=== PATIENT | male | born 1960 | race Caucasian/White ===

== ENCOUNTER 2020-01-14 14:14 | Outpatient (REF) | payer OTHER, SELFPAY | END 2020-01-14 14:15 | disposition home or self-care (01) | LOC: HO.BBR 14:14 | PROVIDERS: Visit Provider Internal Medicine Gastroenterology | DX: E83.110 Hereditary hemochromatosis (principal) | CPT/HCPCS: 99195 ==

== ENCOUNTER 2020-03-10 14:13 | Outpatient (REF) | payer OTHER, SELFPAY ==
[2020-03-10 16:06] LABS: Iron 74 mcg/dL (45-160); Percent Iron Saturation 24 % (15-50); Total Iron Binding Capacity 308 mcg/dL (228-428); Unsaturated Iron Binding 234 ug/dL
[2020-03-10 16:20] LABS: Ferritin 9 ng/mL (20-250)
== END 2020-03-10 14:14 | disposition home or self-care (01) ==
LOC: HO.BBR 14:13
PROVIDERS: Visit Provider Internal Medicine Gastroenterology
DX: E83.110 Hereditary hemochromatosis (principal)
CPT/HCPCS: 36415; 82728; 83540

== ENCOUNTER 2020-03-10 14:45 | Outpatient (REF) | payer SELFPAY ==
[2020-03-10 19:22] LABS: Cholesterol 197 mg/dL
[2020-03-10 19:46] LABS: SARS COV2 IgG Negative (Negative)
== END 2020-03-10 14:46 | disposition home or self-care (01) ==
LOC: HO.LNC 14:45
PROVIDERS: Visit Provider Pathology Anatomic Pathology & Clinical Pathology
DX: Z20.828 Contact with and (suspected) exposure to other viral communicable diseases (principal)
CPT/HCPCS: 82465; 86769

== ENCOUNTER 2020-03-10 15:03 | Outpatient (REF) | payer SELFPAY | END 2020-03-10 15:04 | disposition home or self-care (01) | LOC: HO.LNC 15:03 | PROVIDERS: Visit Provider Pathology Anatomic Pathology & Clinical Pathology | DX: Z13.89 Encounter for screening for other disorder (principal) ==

== ENCOUNTER 2020-06-09 13:58 | Outpatient (REF) | payer OTHER, SELFPAY ==
[2020-06-09 14:22] LABS: Hematocrit 42.5 % (42-52); Hemoglobin 14.7 g/dl (14.0-18.0)
[2020-06-09 14:48] LABS: Iron 117 mcg/dL (45-160); Percent Iron Saturation 39 % (15-50); Total Iron Binding Capacity 300 mcg/dL (228-428); Unsaturated Iron Binding 183 ug/dL
[2020-06-09 15:09] LABS: Ferritin 15 ng/mL (20-250)
== END 2020-06-09 13:59 | disposition home or self-care (01) ==
LOC: HO.BBR 13:58
PROVIDERS: Visit Provider Internal Medicine Gastroenterology
DX: E83.110 Hereditary hemochromatosis (principal)
CPT/HCPCS: 36415; 82728; 83540; 85014; 85018

== ENCOUNTER 2020-09-15 14:11 | Outpatient (REF) | payer OTHER, SELFPAY ==
[2020-09-15 14:33] LABS: Hematocrit 40.8 % (42-52); Hemoglobin 14.3 g/dl (14.0-18.0)
[2020-09-15 14:57] LABS: Iron 142 mcg/dL (45-160); Percent Iron Saturation 51 % (15-50); Total Iron Binding Capacity 280 mcg/dL (228-428); Unsaturated Iron Binding 138 ug/dL
[2020-09-15 15:18] LABS: Ferritin 10 ng/mL (20-250)
== END 2020-09-15 14:12 | disposition home or self-care (01) ==
LOC: HO.BBR 14:11
PROVIDERS: Visit Provider Internal Medicine Gastroenterology
DX: E83.110 Hereditary hemochromatosis (principal)
CPT/HCPCS: 36415; 82728; 83540; 85014; 85018

== ENCOUNTER 2021-03-09 13:59 | Outpatient (REF) | payer OTHER, SELFPAY ==
[2021-03-09 14:19] LABS: Hematocrit 43.6 % (42.0-52.0); Hemoglobin 15.9 g/dl (14.0-18.0)
[2021-03-09 14:36] LABS: Iron 246 mcg/dL (45-160); Unsaturated Iron Binding < 17 ug/dL
[2021-03-09 14:59] LABS: Ferritin 38 ng/mL (20-250)
== END 2021-03-09 14:00 | disposition home or self-care (01) ==
LOC: HO.BBR 13:59
PROVIDERS: Visit Provider Internal Medicine Gastroenterology
DX: E83.110 Hereditary hemochromatosis (principal)
CPT/HCPCS: 36415; 82728; 83540; 85014; 85018

== ENCOUNTER 2021-06-15 14:12 | Outpatient (REF) | payer OTHER, SELFPAY | END 2021-06-15 14:13 | disposition home or self-care (01) | LOC: HO.BBR 14:12 | PROVIDERS: Visit Provider Internal Medicine Gastroenterology | DX: Z13.89 Encounter for screening for other disorder (principal) ==

== ENCOUNTER 2021-09-28 14:08 | Outpatient (REF) | payer OTHER, SELFPAY ==
[2021-09-28 14:27] LABS: Hematocrit 43.2 % (42.0-52.0); Hemoglobin 15.8 g/dl (14.0-18.0)
[2021-09-28 14:48] LABS: Iron 239 mcg/dL (45-160); Total Iron Binding Capacity < 256 mcg/dL (228-428); Unsaturated Iron Binding < 17 ug/dL
[2021-09-28 15:08] LABS: Ferritin 55 ng/mL (20-250)
== END 2021-09-28 14:09 | disposition home or self-care (01) ==
LOC: HO.BBR 14:08
PROVIDERS: Visit Provider Internal Medicine Gastroenterology
DX: E83.110 Hereditary hemochromatosis (principal)
CPT/HCPCS: 36415; 82728; 83540; 85014; 85018

== ENCOUNTER 2022-01-01 14:08 | Outpatient (REF) | payer OTHER, SELFPAY | END 2022-01-01 14:09 | disposition home or self-care (01) | LOC: HO.BBR 14:08 | PROVIDERS: Visit Provider Internal Medicine Gastroenterology | DX: Z13.89 Encounter for screening for other disorder (principal) ==

== ENCOUNTER 2022-04-03 14:06 | Outpatient (REF) | payer OTHER, SELFPAY ==
[2022-04-03 14:30] LABS: Hematocrit 46.6 % (42.0-52.0); Hemoglobin 16.7 g/dl (14.0-18.0)
[2022-04-04 03:41] LABS: Ferritin 71 ng/mL (20-250)
[2022-04-04 03:45] LABS: Iron 272 mcg/dL (45-160); Percent Iron Saturation 92 % (15-50); Total Iron Binding Capacity 297 mcg/dL (228-428); Unsaturated Iron Binding < 25 ug/dL
== END 2022-04-03 14:07 | disposition home or self-care (01) ==
LOC: HO.BBR 14:06
PROVIDERS: PCP Family Medicine; Visit Provider Internal Medicine Gastroenterology
DX: E83.110 Hereditary hemochromatosis (principal)
CPT/HCPCS: 36415; 82728; 83540; 85014; 85018

== ENCOUNTER 2022-08-22 14:08 | Outpatient (REF) | payer OTHER, SELFPAY | END 2022-08-22 14:09 | disposition home or self-care (01) | LOC: HO.BBR 14:08 | PROVIDERS: Visit Provider Internal Medicine Gastroenterology | DX: Z13.89 Encounter for screening for other disorder (principal) ==

== ENCOUNTER 2022-10-17 14:06 | Outpatient (REF) | payer OTHER, SELFPAY | END 2022-10-17 14:07 | disposition home or self-care (01) | LOC: HO.BBR 14:06 | PROVIDERS: PCP Family Medicine; Visit Provider Internal Medicine Gastroenterology | DX: Z13.89 Encounter for screening for other disorder (principal) ==

== ENCOUNTER 2022-12-12 14:12 | Outpatient (REF) | payer OTHER, SELFPAY | END 2022-12-12 14:13 | disposition home or self-care (01) | LOC: HO.BBR 14:12 | PROVIDERS: PCP Family Medicine; Visit Provider Internal Medicine Gastroenterology | DX: Z13.89 Encounter for screening for other disorder (principal) ==

== ENCOUNTER 2023-02-04 14:04 | Outpatient (REF) | payer OTHER, SELFPAY ==
[2023-02-04 15:26] LABS: Ferritin 36 ng/mL (20-250)
== END 2023-02-04 14:05 | disposition home or self-care (01) ==
LOC: HO.BBR 14:04
PROVIDERS: PCP Family Medicine; Visit Provider Internal Medicine Gastroenterology
DX: E83.110 Hereditary hemochromatosis (principal)
CPT/HCPCS: 36415; 82728

== ENCOUNTER 2023-06-04 13:48 | Outpatient (REF) | payer OTHER, SELFPAY | END 2023-06-04 13:49 | disposition home or self-care (01) | LOC: HO.BBR 13:48 | PROVIDERS: PCP Family Medicine; Visit Provider Internal Medicine Gastroenterology | DX: Z13.89 Encounter for screening for other disorder (principal) ==

== ENCOUNTER 2023-09-11 14:08 | Outpatient (REF) | payer OTHER, SELFPAY | END 2023-09-11 14:09 | disposition home or self-care (01) | LOC: HO.BBR 14:08 | PROVIDERS: PCP Family Medicine; Visit Provider Internal Medicine Gastroenterology | DX: Z13.89 Encounter for screening for other disorder (principal) ==

== ENCOUNTER 2023-12-12 14:11 | Outpatient (REF) | payer OTHER, SELFPAY | END 2023-12-12 14:12 | disposition home or self-care (01) | LOC: HO.BBR 14:11 | PROVIDERS: PCP Family Medicine; Visit Provider Internal Medicine Gastroenterology | DX: Z13.89 Encounter for screening for other disorder (principal) ==

== ENCOUNTER 2024-06-24 14:17 | Outpatient (REF) | payer MEDICARE, SELFPAY | END 2024-06-24 14:18 | disposition home or self-care (01) | LOC: HO.BBR 14:17 | PROVIDERS: Visit Provider Internal Medicine Gastroenterology | DX: Z13.89 Encounter for screening for other disorder (principal) ==

== ENCOUNTER 2024-09-23 14:09 | Outpatient (REF) | payer MEDICARE, SELFPAY ==
--- OUTSIDE RECORDS SUMMARY | 2024-09-23 17:09 | XMS_ITS | Data Portability ---
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 12 point review of systems is notable for: 1) rosacea-he sees Dr. Tanisha Sparrow to help with his rosacea which is flared up slightly. Follow-up per dermatology. 2) adenomatous colon polyp-on a routine colonoscopy last year he was found to abdomen and no medicine polyp. He will go for colonoscopy every 5 years. 3) elevated calcium artery score-reviewed his cardiology workup. He had an excellent capacity and a stress test. He continues to exercise regularly. Lipid panel from last year reviewed which was quite favorable. Assessment-clini amber normal. Follow-up in a year. 4) health maintenance-revi ewed all quality measures. Regular exercise discussed. Immunizations are up-to-date. Yearly physical encouraged. Stress management is good. Reviewed his normal PHQ. He is comfortable with these plans. [email or web address] Not available 09/04/2021 09:51:17 09/05/2022 09/05/2022 Patient is here for a routine physical and ongoing review of systems. 12 point review of systems is notable for: 1) BPH-very little change. He has good days and bad days, but there is no significant progression. Okay to monitor symptoms. 2) health maintenance-revi ewed all quality measures. Reviewed all the labs. Favorable ratio and relatively low LDL. Immunizations are up to date. We discussed his excellent exercise regimen. Yearly physical encouraged. We discussed his health care proxy which he will make sure he completes and discussed my pending fdc and his transfer to Dr. Carley Fabian for a new PCP. I reviewed his normal screening questionnaires. 3) history of adenomatous polyps-colonosco py is up to date from last month. Repeat colonoscopy in 5 years. 4) refilled zolpidem for intermittent use. He is comfortable with these plans. [email or web address] Not available 09/05/2022 10:09:52 01/27/2024 01/27/2024 Assessment & Plan Alcohol Use Positive alcohol screening. Patient reports difficulty limiting alcohol intake during social events, but does not desire to quit drinking entirely. Discussed strategies for limiting intake. -Try limiting to two alcoholic drinks, then switch to non-alcoholic beverages during social events. f/u labs difficulty hearing- will send referral to audiology for comprehensive hearing exam. Hemochromatosis Patient reports feeling lightheaded when standing up after crouching, possibly due to low blood pressure. Patient undergoes therapeutic phlebotomy every three months to manage iron levels. -Ensure adequate hydration, especially before phlebotomy sessions. Abdominal Mass Palpated a small, non-tender mass in the neck during physical exam. -Order neck ultrasound to further evaluate the mass. -Order labs to assess CBC General Health Maintenance -Continue regular exercise routine. -Next colonoscopy due in 2027 (last one in 2022 with adenomatous polyp). -Schedule next annual wellness visit. [email or web address] Not available 01/27/2024 17:37:13 08/09/2024 08/09/2024 Patient is here with mild BPH symptoms to discuss testing for prostate cancer. We reviewed the pros and cons of early detection of prostate cancer. We discussed medications for BPH. Patient tried Flomax previously but did not like the side effects. We discussed finasteride. Objective-vital signs noted. Prostate exam shows a 2+ enlarged prostate without any nodularity. Assessment-mild BPH. Patient requests PSA testing. Patient understands risks and benefits. Follow-up after testing to consider finasteride. Patient is comfortable with this plan. [email or web address] Not available 08/09/2024 08:51:49 Plan of Treatment Reminders Order Date Submit Date Provider Last Modified By Organization Details Last Modified Time Details Appointments LAB Follow- Up 2024 02:00P M [facility] Lab Not available Not available Not available [facility] s Visit 30 2024 02:00P M Greta Fabian, DO Not available Not available Not available Lab PSA, serum or plasma 2024 025 [facility], [address] [place] [address], [id number], 08/09/2024 14:27:15 CBC 2023 024 [facility], [address] [place] [address], [id number], 01/28/2024 10:46:05 BMP, serum or plasma 2020 021 [facility], [address] [place] [address], [id number], 04/17/2020 11:50:14 Referral audiolo gist referra l 2023 024 [facility], [address] [place] [address], [place], [address], 02/16/2024 14:47:24 Procedures None recorde d. Surgeries None recorde d. Imaging US, neck, soft tissue - L side 2023 024 [facility] (Imaging), [address], [place], [address], 02/03/2024 17:41:14 Medication Orders zolpide m 5 mg tablet 2022 023 [facility], [address] [place] [address], [id number], 01/27/2024 14:52:50 Patient TargetsNo targets recorded. Patient Instructions Encounter Date Encounter Id Patient Instructions Last Modified By Organization Details Last Modified Time 09/04/2021 [id number] Well Visit 50 to 65: Care Instructions [email or web address] Not available 09/04/2021 09:52:07 Prostate Cancer Screening using PSA was discussed. The U.S. Preventive Services Task Force advises not to make a PSA test a part of the standard exam for men ages 55-69. Instead they recommend the uncertainties about the test be discussed and ordered only if a patient still wants it. Over their lifetimes as many as 50% or more of men will develop prostate cancer but only 2% of men will of prostate cancer. For men who chose to be screened for prostate cancer if 1000 men are screened with a psa test over a 15 year period there might be 1-2 deaths prevented however 235 men will have a biopsy with risk of infection, bleeding and Pain, 100 men will have their prostate removed by surgery or radiation treatments and 60-70 of those will suffer incontinence or impotence. There is also the risk of anesthesia or radiation complications. For men over 70 prostate cancer screening offered no benefit and risked pain, worry, expense and possibly shorter life expectancy. [email or web address] Not available 09/04/2021 09:14:22 09/05/2022 [id number] Well Visit 50 to 65: Care Instructions [email or web address] Not available 09/05/2022 10:05:23 Prostate Cancer Screening using PSA was discussed. The U.S. Preventive Services Task Force advises not to make a PSA test a part of the standard exam for men ages 55-69. Instead they recommend the uncertainties about the test be discussed and ordered only if a patient still wants it. Over their lifetimes as many as 50% or more of men will develop prostate cancer but only 2% of men will of prostate cancer. For men who chose to be screened for prostate cancer if 1000 men are screened with a psa test over a 15 year period there might be 1-2 deaths prevented however 235 men will have a biopsy with risk of infection, bleeding and Pain, 100 men will have their prostate removed by surgery or radiation treatments and 60-70 of those will suffer incontinence or impotence. There is also the risk of anesthesia or radiation complications. For men over 70 prostate cancer screening offered no benefit and risked pain, worry, expense and possibly shorter life expectancy. [email or web address] Not available 09/05/2022 09:14:23 08/09/2024 [id number] CCM: The provide r and patient discussed the Chronic Care Management program, including the services provided, and any fees associated with them. 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 Chem Resul ts may be effec rama. <200 mg/dl Colleen able 200-2 39 mg/dl Borde rline High >240 mg/dl High Not Available [address], [address], 04/17/2020 11:38:33 04/14/1904/17/2020 lipid panel , serum triglyceride s 183 mg/dL <150 mg/dL Lorena l 150-1 99 mg/dL Borde rline High 200-4 99 mg/dL High >500 mg/dL Very High Not Available [address], [address], 04/17/2020 11:38:33 04/14/1904/17/2020 lipid panel , serum direct HDL 60 mg/dL <40 mg/dl - Major Risk for CHD >60 mg/dl - Negat brian Risk for CHD Not Available [address], [address], 04/17/2020 11:38:33 04/14/1904/17/2020 LDL, direc t, serum direct LDL 100 mg/dL RISK CATEG ORY LDL GOAL _ CHD or CHD Risk Equiv alent s <100 mg/dl (10-y ear risk >20%) 2+ Risk Facto rs <130 mg/dl (10-y ear risk <= 20%) 0-1 Risk Facto r <160 mg/dl [facility] all peopl e with 0-1 risk facto r have a 10 year risk <10%, thus 10 year risk asses ment in peopl e with 0-1 risk facto r is not nicki alvarez. Not Available [address], [address], 04/17/2020 11:38:34 04/14/19 21 04/17/2020 BMP, serum or plasm a glucose 101 mg/dL 70-100 high LIPS= Speci men Sligh tly Lipem ic. Chem Resul ts may be effec rama. Not Available [address], [address], 04/17/2020 11:50:14 04/14/19 21 04/17/2020 BMP, serum or plasm a BUN 16 mg/dL 7-18 Not Available [address], [address], 04/17/2020 11:50:14 04/14/19 21 04/17/2020 BMP, serum or plasm a creatinine 1.0 mg/dL 0.8-1. 3 Not Available [address], [address], 04/17/2020 11:50:14 04/14/1904/17/2020 BMP, serum or plasm a B/C 16.0 ratio Not Available [address], [address], 04/17/2020 11:50:14 04/14/1904/17/2020 BMP, serum or plasm a GFR -non 80.7 mL/mi n Recom narayan d GFR by the Natio nal Kidne y Found ation >60 mL/mi n/1.7 3m2 - Lorena l <60 mL/mi n/1.7 3m2 - Chron ic Kidne y Disea se <15 mL/mi n/1.7 3m2 - Kidne y Failu re Not Available [address], [address], 04/17/2020 11:50:14 04/14/19 21 04/17/2020 BMP, serum or plasm a GFR - if 97.7 mL/mi n For Afric an Ameri can patie nts: Resul ts Multi plied by 1.21 Not Available [address], [address], 04/17/2020 11:50:14 04/14/19 21 04/17/2020 BMP, serum or plasm a sodium 141 mmol/ L 136-14 5 Not Available [address], [address], 04/17/2020 11:50:14 04/14/19 21 04/17/2020 BMP, serum or plasm a potassium 4.5 mmol/ L 3.5-5. 1 Not Available [address], [address], 04/17/2020 11:50:14 04/14/1904/17/2020 BMP, serum or plasm a chloride 104 mmol/ L 96-107 Not Available [address], [address], 04/17/2020 11:50:14 04/14/1904/17/2020 BMP, serum or plasm a anion gap 11.1 5.0-15 .0 Not Available [address], [address], 04/17/2020 11:50:14 04/14/1904/17/2020 BMP, serum or plasm a CO2 26 mmol/ L 21-32 Not Available [address], [address], 04/17/2020 11:50:14 04/14/19 21 04/17/2020 BMP, serum or plasm a calcium 9.0 mg/dL 8.5-10 .3 Not Available [facility] [address] [place], [address], 04/17/2020 11:50:14 10/26/19 21 10/26/2020 ANATO ARTIE PATHO LOGY path report [facility] [address] [place] [address] Lab Direc tor: Rhonda seaman MD Surgi cass Patho logy Repor t Acces lorin #: [id number] FINAL PATHO LOGIC DIAGN OSIS: TRANS VERSE COLON POLYP : Adeno matou s polyp . Treva ctron icall y Regina d Out By Maricarmen mims MD By his/h er jeannie barboza above , the patho logis t liste d as candace suazo the Final Diagn osis certi fies that he/sh e has perso goyo revie wed this case and confi rmed or corre cted the diagn osis. CLINI CASS HISTO RY Scree miladis for color ectal malig nant neopl asm. SPECI MENS SUBMI TTED: A: COLON POLYP , TRANS VERSE GROSS DESCR IPTIO N COLON POLYP , TRANS VERSE : Forma nora: 2 fragm ents less than 0.1 up to 0.2 cm, A1 total . AN 2020 Gross ing Staff : AMIE Rice nt Name: MARICARMEN BRANTLEY : [birth year] (Age: 60) Sex: M 8 Insti tutio n: [facility] Locat ion: [facility] Date of Opera tion: 2020 Date of Acces lorin: 2020 Repor rama: 2020 15:22 Resul ts To: Oneil Ro MD, BS, MS Marco smith MD, BS Not Available [facility] (Outpatient) [address] [facility], [place], [address], 10/26/2020 16:09:13 08/30/19 23 08/29/2022 CBC WBC 3.88 K/ L 4.23-9 .07 low Not Available [address], [address], 08/29/2022 12:07:30 08/30/19 23 08/29/2022 CBC RBC 4.42 M/ L 4.63-6 .08 low Not Available [address], [address], 08/29/2022 12:07:30 08/30/19 23 08/29/2022 CBC HGB 14.6 g/dL 13.7-1 7.5 Not Available [address], [address], 08/29/2022 12:07:30 08/30/1908/29/2022 CBC HCT 42.8 % 40.1-5 1.0 Not Available [address], [address], 08/29/2022 12:07:30 08/30/19 23 08/29/2022 CBC MCV 96.8 fL 79.0-9 2.2 high Not Available [address], [address], 08/29/2022 12:07:30 08/30/19 23 08/29/2022 CBC MCH 33.0 pg 25.7-3 2.2 high Not Available [address], [address], 08/29/2022 12:07:30 08/30/19 23 08/29/2022 CBC MCHC 34.1 g/dL 32.3-3 6.5 Not Available [address], [address], 08/29/2022 12:07:30 08/30/19 23 08/29/2022 CBC plt 203 K/ L 163-33 7 Not Available [address], [address], 08/29/2022 12:07:30 08/30/19 23 08/29/2022 CBC MPV 10.4 fL 9.4-12 .4 Not Available [address], [address], 08/29/2022 12:07:30 08/30/19 23 08/29/2022 CBC neut% 55.4 % 34.0-6 7.9 Not Available [address], [address], 08/29/2022 12:07:30 08/30/19 23 08/29/2022 CBC neut# 2.15 1.78-5 .38 Not Available [address], [address], 08/29/2022 12:07:30 08/30/19 23 08/29/2022 CBC lymph % 29.6 % 21.8-5 3.1 Not Available [address], [address], 08/29/2022 12:07:30 08/30/19 23 08/29/2022 CBC lymph # 1.15 K/ L 1.32-3 .57 low Not Available [address], [address], 08/29/2022 12:07:30 08/30/19 23 08/29/2022 CBC mono% 9.8 % 5.3-12 .2 Not Available [address], [address], 08/29/2022 12:07:30 08/30/19 23 08/29/2022 CBC mono# 0.38 0.30-0 .82 Not Available [address], [address], 08/29/2022 12:07:30 08/30/19 23 08/29/2022 CBC eo% 3.9 % 0.8-7. 0 Not Available [address], [address], 08/29/2022 12:07:30 08/30/19 23 08/29/2022 CBC eo# 0.15 0.04-0 .54 Not Available [address], [address], 08/29/2022 12:07:30 08/30/19 23 08/29/2022 CBC baso% 1.0 % 0.2-1. 2 Not Available [address], [address], 08/29/2022 12:07:30 08/30/19 23 08/29/2022 CBC baso# 0.04 0.00-0 .08 Not Available [address], [address], 08/29/2022 12:07:30 08/30/19 23 08/29/2022 CBC RDW-CV 12.7 % 11.6-1 4.4 Not Available [address], [address], 08/29/2022 12:07:30 08/30/19 23 08/29/2022 CBC Ig% 0.300 % 0.000- 1.500 Ig % >0.5 Indic ates possi ble Left Shift Not Available [address], [address], 08/29/2022 12:07:30 08/30/19 23 08/29/2022 CBC Ig# 0.010 0.000- 0.093 Not Available [address], [address], 08/29/2022 12:07:30 08/30/1908/29/2022 CBC NRBC% 0.0 % 0.0-0. 2 Not Available [address], [address], 08/29/2022 12:07:30 08/30/19 23 08/29/2022 CBC NRBC# 0.000 0.000- 0.012 Not Available [address], [address], 08/29/2022 12:07:30 08/30/1909/02/2022 COMP. METAB OLIC PANEL glucose 99 mg/dL 70-100 Not Available [address], [address], 09/02/2022 11:19:45 08/30/19 23 09/02/2022 COMP. METAB OLIC PANEL BUN 14 mg/dL 7-18 Not Available [address], [address], 09/02/2022 11:19:45 08/30/19 23 09/02/2022 COMP. METAB OLIC PANEL creatinine 1.0 mg/dL 0.8-1. 3 Not Available [address], [address], 09/02/2022 11:19:45 08/30/19 23 09/02/2022 COMP. METAB OLIC PANEL B/C 14.0 ratio Not Available [address], [address], 09/02/2022 11:19:45 08/30/1909/02/2022 COMP. METAB OLIC PANEL GFR >=60ML /MIN mL/mi n normal >=60m L/min - Lorena l or midly reduc ed <60mL /min- Decre ased kidne y funct ion <15mL /min - Kidne y failu re [facility] calcu lates estim ated Glome rular Filtr ation Rate (eGFR ) using the Chron ic Kidne y Disea se Epide miolo gy Colla borat ion (CKD- EPI) Equat ion (Aakash r et. al 2020) as recom narayan d by the Natio nal Kidne y Found ation . eGFR is based on age, serum creat inine , and sex. CKD-E PI does not calcu late eGFR by race, does not apply to child matthew (age <18 years ), and shoul d not be used in pregn brian. Not Available [address], [address], 09/02/2022 11:19:45 08/30/19 23 09/02/2022 COMP. METAB OLIC PANEL sodium 143 mmol/ L 136-14 5 Not Available [address], [address], 09/02/2022 11:19:45 08/30/19 23 09/02/2022 COMP. METAB OLIC PANEL potassium 4.2 mmol/ L 3.5-5. 1 Not Available [address], [address], 09/02/2022 11:19:45 08/30/19 23 09/02/2022 COMP. METAB OLIC PANEL chloride 106 mmol/ L 96-107 Not Available [address], [address], 09/02/2022 11:19:45 08/30/19 23 09/02/2022 COMP. METAB OLIC PANEL anion gap 8.3 5.0-15 .0 Not Available [address], [address], 09/02/2022 11:19:45 08/30/19 23 09/02/2022 COMP. METAB OLIC PANEL CO2 29 mmol/ L 21-32 Not Available [address], [address], 09/02/2022 11:19:45 08/30/19 23 09/02/2022 COMP. METAB OLIC PANEL calcium 8.7 mg/dL 8.5-10 .3 Not Available [address], [address], 09/02/2022 11:19:45 08/30/19 23 09/02/2022 COMP. METAB OLIC PANEL total protein 6.5 g/dL 6.4-8. 2 Not Available [address], [address], 09/02/2022 11:19:45 08/30/19 23 09/02/2022 COMP. METAB OLIC PANEL albumin 3.9 g/dL 3.4-5. 0 Not Available [address], [address], 09/02/2022 11:19:45 08/30/19 23 09/02/2022 COMP. METAB OLIC PANEL globulin 2.6 g/dL Not Available [address], [address], 09/02/2022 11:19:45 08/30/19 23 09/02/2022 COMP. METAB OLIC PANEL A/G 1.5 ratio 0.8-2. 0 Not Available [address], [address], 09/02/2022 11:19:45 08/30/19 23 09/02/2022 COMP. METAB OLIC PANEL total bilirubin 0.80 mg/dL 0.00-1 .00 Not Available [address], [address], 09/02/2022 11:19:45 08/30/19 23 09/02/2022 COMP. METAB OLIC PANEL AST 25 U/L 0-37 Not Available [address], [address], 09/02/2022 11:19:45 08/30/19 23 09/02/2022 COMP. METAB OLIC PANEL ALT 40 U/L 6-63 Not Available [address], [address], 09/02/2022 11:19:45 08/30/19 23 09/02/2022 COMP. METAB OLIC PANEL alk. phos. 59 U/L 50-136 Not Available [address], [address], 09/02/2022 11:19:45 08/30/19 23 09/02/2022 LIPID PANEL cholesterol 199 mg/dL <200 mg/dl Colleen able 200-2 39 mg/dl Borde rline High >240 mg/dl High Not Available [address], [address], 09/02/2022 11:19:46 08/30/19 23 09/02/2022 LIPID PANEL triglyceride s 40 mg/dL <150 mg/dL Lorena l 150-1 99 mg/dL Borde rline High 200-4 99 mg/dL High >500 mg/dL Very High Not Available [address], [address], 09/02/2022 11:19:46 08/30/1909/02/2022 LIPID PANEL direct HDL 73 mg/dL <40 mg/dl - Major Risk for CHD >60 mg/dl - Negat brian Risk for CHD Not Available [address], [address], 09/02/2022 11:19:46 08/30/19 23 09/02/2022 LDL - CALCU LATED LDL - calculated 118.0 RISK CATEG ORY LDL GOAL _ CHD or CHD Risk Equiv alent s <100 mg/dl (10-y ear risk >20%) 2+ Risk Facto rs <130 mg/dl (10-y ear risk <= 20%) 0-1 Risk Facto r <160 mg/dl [facility] all peopl e with 0-1 risk facto r have a 10 year risk <10%, thus 10 year risk asses ment in peopl e with 0-1 risk facto r is not neces kim. Not Available [address], [address], 09/02/2022 11:21:23 01/27/20 24 01/28/2024 CBC WBC 4.86 K/ L 4.23-9 .07 Not Available [address], [address], 01/28/2024 10:46:05 01/27/2001/28/2024 CBC RBC 4.68 M/ L 4.63-6 .08 Not Available [address], [address], 01/28/2024 10:46:05 01/27/2001/28/2024 CBC HGB 15.7 g/dL 13.7-1 7.5 Not Available [address], [address], 01/28/2024 10:46:05 01/27/2001/28/2024 CBC HCT 49.1 % 40.1-5 1.0 Not Available [address], [address], 01/28/2024 10:46:05 01/27/2001/28/2024 CBC MCV 104.9 fL 79.0-9 2.2 high Not Available [address], [address], 01/28/2024 10:46:05 01/27/2001/28/2024 CBC MCH 33.5 pg 25.7-3 2.2 high Not Available [address], [address], 01/28/2024 10:46:05 01/27/2001/28/2024 CBC MCHC 32.0 g/dL 32.3-3 6.5 low Not Available [address], [address], 01/28/2024 10:46:05 01/27/2001/28/2024 CBC plt 193 K/ L 163-33 7 Not Available [address], [address], 01/28/2024 10:46:05 01/27/20 24 01/28/2024 CBC MPV 10.3 fL 9.4-12 .4 Not Available [address], [address], 01/28/2024 10:46:05 01/27/2001/28/2024 CBC neut% 68.2 % 34.0-6 7.9 high Not Available [address], [address], 01/28/2024 10:46:05 01/27/2001/28/2024 CBC neut# 3.31 1.78-5 .38 Not Available [address], [address], 01/28/2024 10:46:05 01/27/2001/28/2024 CBC lymph % 20.8 % 21.8-5 3.1 low Not Available [address], [address], 01/28/2024 10:46:05 01/27/2001/28/2024 CBC lymph # 1.01 K/ L 1.32-3 .57 low Not Available [address], [address], 01/28/2024 10:46:05 01/27/2001/28/2024 CBC mono% 8.4 % 5.3-12 .2 Not Available [address], [address], 01/28/2024 10:46:05 01/27/2001/28/2024 CBC mono# 0.41 0.30-0 .82 Not Available [address], [address], 01/28/2024 10:46:05 01/27/2001/28/2024 CBC eo% 1.4 % 0.8-7. 0 Not Available [address], [address], 01/28/2024 10:46:05 01/27/2021 0101/28/2024 CBC eo# 0.07 0.04-0 .54 Not Available [address], [address], 01/28/2024 10:46:05 01/27/20 24 01/28/2024 CBC baso% 0.8 % 0.2-1. 2 Not Available [address], [address], 01/28/2024 10:46:05 01/27/20 24 01/28/2024 CBC baso# 0.04 0.00-0 .08 Not Available [address], [address], 01/28/2024 10:46:05 01/27/20 24 01/28/2024 CBC RDW-CV 14.0 % 11.6-1 4.4 Not Available [address], [address], 01/28/2024 10:46:05 01/27/20 24 01/28/2024 CBC Ig% 0.400 % 0.000- 1.500 Ig % >0.5 Indic ates possi ble Left Shift Not Available [address], [address], 01/28/2024 10:46:05 01/27/20 24 01/28/2024 CBC Ig# 0.020 0.000- 0.093 Not Available [address], [address], 01/28/2024 10:46:05 01/27/20 24 01/28/2024 CBC NRBC% 0.0 % 0.0-0. 2 Not Available [address], [address], 01/28/2024 10:46:05 01/27/20 24 01/28/2024 CBC NRBC# 0.000 0.000- 0.012 Not Available [address], [address], 01/28/2024 10:46:05 01/29/20 24 01/29/2024 COMP. METAB OLIC PANEL glucose 90 mg/dL 70-100 Not Available [address], [address], 01/29/2024 12:00:25 01/29/20 24 01/29/2024 COMP. METAB OLIC PANEL BUN 11 mg/dL 7-18 Not Available [address], [address], 01/29/2024 12:00:25 01/29/20 24 01/29/2024 COMP. METAB OLIC PANEL creatinine 1.0 mg/dL 0.8-1. 3 Not Available [address], [address], 01/29/2024 12:00:25 01/29/20 24 01/29/2024 COMP. METAB OLIC PANEL B/C 11.0 ratio Not Available [address], [address], 01/29/2024 12:00:25 01/29/2001/29/2024 COMP. METAB OLIC PANEL GFR >=60ML /MIN mL/mi n normal >=60m L/min - Lorena l or midly reduc ed <60mL /min- Decre ased kidne y funct ion <15mL /min - Kidne y failu re [facility] calcu lates estim ated Glome rular Filtr ation Rate (eGFR ) using the Chron ic Kidne y Disea se Epide miolo gy Colla borat ion (CKD- EPI) Equat ion (Aakash r et. al 2020) as recom narayan d by the Natio nal Kidne y Found ation . eGFR is based on age, serum creat inine , and sex. CKD-E PI does not calcu late eGFR by race, does not apply to child matthew (age <18 years ), and shoul d not be used in pregn brian. Not Available [address], [address], 01/29/2024 12:00:25 01/29/20 24 01/29/2024 COMP. METAB OLIC PANEL sodium 142 mmol/ L 136-14 5 Not Available [address], [address], 01/29/2024 12:00:25 01/29/20 24 01/29/2024 COMP. METAB OLIC PANEL potassium 4.2 mmol/ L 3.5-5. 1 Not Available [address], [address], 01/29/2024 12:00:25 01/29/20 24 01/29/2024 COMP. METAB OLIC PANEL chloride 105 mmol/ L 96-107 Not Available [address], [address], 01/29/2024 12:00:25 01/29/20 24 01/29/2024 COMP. METAB OLIC PANEL anion gap 6.2 5.0-15 .0 Not Available [address], [address], 01/29/2024 12:00:25 01/29/20 24 01/29/2024 COMP. METAB OLIC PANEL CO2 31 mmol/ L 21-32 Not Available [address], [address], 01/29/2024 12:00:25 01/29/20 24 01/29/2024 COMP. METAB OLIC PANEL calcium 9.4 mg/dL 8.5-10 .3 Not Available [address], [address], 01/29/2024 12:00:25 01/29/20 24 01/29/2024 COMP. METAB OLIC PANEL total protein 6.7 g/dL 6.4-8. 2 Not Available [address], [address], 01/29/2024 12:00:25 01/29/20 24 01/29/2024 COMP. METAB OLIC PANEL albumin 3.8 g/dL 3.4-5. 0 Not Available [address], [address], 01/29/2024 12:00:25 01/29/20 24 01/29/2024 COMP. METAB OLIC PANEL globulin 2.9 g/dL Not Available [address], [address], 01/29/2024 12:00:25 01/29/20 24 01/29/2024 COMP. METAB OLIC PANEL A/G 1.3 ratio 0.8-2. 0 Not Available [address], [address], 01/29/2024 12:00:25 01/29/20 24 01/29/2024 COMP. METAB OLIC PANEL total bilirubin 0.60 mg/dL 0.00-1 .00 Not Available [address], [address], 01/29/2024 12:00:25 01/29/20 24 01/29/2024 COMP. METAB OLIC PANEL AST 23 U/L 0-37 Not Available [address], [address], 01/29/2024 12:00:25 01/29/20 24 01/29/2024 COMP. METAB OLIC PANEL ALT 39 U/L 6-63 Not Available [address], [address], 01/29/2024 12:00:25 01/29/20 24 01/29/2024 COMP. METAB OLIC PANEL alk. phos. 65 U/L 50-136 Not Available [address], [address], 01/29/2024 12:00:25 08/10/19 25 08/09/2024 PSA PSA 0.58 NG/mL 0.00-4 .00 Not Available [facility] [address] [facility], [place], [address], 08/09/2024 14:27:14 04/14/19 21 elect rocar diogr am No observ ation record ed. sesrick Not Available 2020 15:57:36 04/14/19 21 elect rocar diogr am No observ ation record ed. sesrick Not Available 2020 15:57:36 04/14/19 21 elect rocar diogr am No observ ation record ed. sesrick Not Available 2020 15:57:36 09/06/19 23 10/25/2020 colon oscop y proce dure (PROC ) No observ ation record ed. [email or web address] Not Available 2022 10:03:29 02/03/20 24 02/03/2024 US, neck, soft tissu e CLINIC AL HISTOR Y: Left cervic al lympha denopa thy TECHNI QUE: 2D Sonogr aphy of the neck perfor med. COMPAR SHELLY: None. FINDIN GS: The skin and subcut aneous tissue s appear unrema rkable . There is no suspic ious mass or shadow ing. LYMPH NODES: LEFT Antoine Statio n: Level 1, size 0.8 x 0.4 x 0.8 cm. Indist inct hilum. Cortex estima rama at 2 mm. Antoine Statio n: Level 3, size 0.9 x 0.4 x 1.1 cm. Hilar efface ment. Cortic al thickn ess estima rama at 2 mm. Antoine Statio n: Level 3, size 0.7 x 0.2 x 0.9 cm. Indist inct hilum. Cortic al thickn ess estima rama at 1 mm. Antoine Statio n: Level 3, size 0.5 x 0.2 x 0.8 cm. Indist inct hilum. Cortic al thickn ess estima rama at 1 mm. IMPRES LORIN: Potent ially reacti ve left cervic al lymph nodes. Lymph nodes do not appear pathol ogic. Consid er follow -up in 8-12 weeks. Readin g Physic iron: Ernie Delong ms [facility] (Imaging) [address] [place], [address], 02/06/2024 15:45:29 04/13/19 25 04/13/2024 US, head + neck, soft tissu e CLINIC AL HISTOR Y: Cervic al lympha denopa thy. Follow -up. TECHNI QUE: 2D Sonogr aphy of the neck perfor med. COMPAR SHELLY: 2023. FINDIN GS: The skin and subcut aneous tissue s appear unrema rkable . There is no suspic ious mass or shadow ing. LYMPH NODES: LEFT Antoine Statio n: 1, size 0.8 x 0.4 x 0.8 cm. Indist inct hilum. Likely no cortic al thicke miladis. Antoine Statio n: 3, size 1.0 x 0.4 x 1.1 cm. Indist inct echoge guerrero hilum. No cortic al thicke miladis. Antoine Statio n: 3, size 0.7 x 0.3 x 0.9 cm. Indist inct hilum. No cortic al thicke miladis. Antoine Statio n: 3, size 0.8 x 0.2 x 0.5 cm. Indist inct hilum. No cortic al thicke miladis. IMPRES LORIN: Small left cervic al lymph nodes. These do not appear pathol ogic. There is no worris ome change from the prior study. No additi onal follow -up is recomm ended. Lunain gabriele Physic iron: Enrie Delong ms [facility] (Imaging) [address] [place], [address], 04/16/2024 16:46:49 Result Notes None recorded. Problems Name Problem SNOMED Code Status Onset Date Resolution Date Notes Provider Name and Address Organization Details Recorded Time Pain of shoulder region 94415961 Completed 200702/17/2013 Kamran Kelly MD [address] [place] [address] [place], [address], [facility] 08:55:01 Anemia 127947694 Active 2008 Kamran Kelly MD [address] [place] [address] [place], [address], [facility] 6 08:55:01 Low back pain 600212469 Active 2007 Kamran Kelly MD [address] [place] [address] [place], [address], [facility] 6 08:55:01 Backache 961597923 Completed 200702/17/2013 Kamran Kelly MD [address] [place] [address] [place], [address], [facility] 6 08:55:01 Traumatic injury 866700890 Completed 200702/17/2013 Kamran Kelly MD [address] [place] [address] [place], [address], [facility] 6 08:55:01 Plantar fasciitis 688641631 Active Kamran Kelly MD [address] [place] [address] [place], [address], [facility] 6 08:55:01 On examination - a rash Completed 200702/17/2013 Kamran Kelly MD [address] [place], [place] [address], [address], [facility] 6 08:55:01 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 Kamran Kelly MD [address] [place] [address] [place], [address], [facility] 6 08:55:01 Pain of elbow region 81076869 Active Kamran Kelly MD [address] [place], [place] [address], [address], [facility] 6 08:55:01 Pain of shoulder region 00402848 Active Kamran Kelly MD [address] [place], [place] [address], [address], [facility] 6 08:55:01 Knee pain Active Kamran Kelly MD [address] [place] [address] [place], [address], [facility] 6 08:55:01 Problem Notes None recorded. Procedures Surgical History Date Name Laterality Status Provider Name and Address Organization Details Recorded Time 01/27/20 Alcohol overuse counseling completed Amy De Souza MA [facility] 01/27/2024 14:47:37 01/27/20 Cardiovascular disease risk reduction counseling completed Amy De Souza MA [facility] 01/27/2024 14:47:39 02/22/20 prevention-cardiov ascular risk reduction counseling completed Lorna Yin MA [facility] 02/22/2020 08:08:22 02/22/20 prevention-annual alcohol misuse screening completed Lorna Yin MA [facility] 02/22/2020 08:08:22 11/23/19 Incise and Drain without packing completed Caroline Moore MD [address] [place], [address], [facility] 11/23/2019 15:39:34 05/08/19 18 17160: Therapeutic Exercise completed Lianne Ricks, PT [address] [place], [address], [facility] 05/08/2017 07:21:06 05/08/19 18 Treatment and Advice completed Lianne Ricks, PT [address] [place], [address], [facility] 05/08/2017 07:21:06 04/24/19 18 68368: Therapeutic Exercise completed Lianne Ricks, PT [address] [place], [address], [facility] 04/24/2017 09:31:30 04/24/19 18 Treatment and Advice completed Lianne Ricks, PT [address] [place], [address], [facility] 04/24/2017 09:30:50 04/07/19 18 56949: Therapeutic Exercise completed Lianne Ricks, PT [address] [place], [address], [facility] 04/08/2017 08:51:40 04/07/19 18 Treatment and Advice completed Lianne Ricks, PT [address] [place], [address], [facility] 04/07/2017 14:36:02 03/26/20 17 Physical Activity Counselling completed Lianne Ricks, PT [address] [place], [address], [facility] 03/26/2017 17:23:57 03/26/20 17 82346: PT Eval Low Complexity completed Lianne Ricks, PT [address] [place], [address], [facility] 03/26/2017 17:23:57 03/26/20 17 Treatment and Advice completed Lianne Ricks, PT [address] [place], [address], [facility] 03/26/2017 14:43:25 06/25/19 17 Smoking cessation counseling completed Erika [facility] 06/24/2016 10:45:17 06/25/19 17 Carbon Monoxide Testing completed [facility] 06/24/2016 10:45:48 06/20/19 17 US Guided Knee Joint Injection completed Dejan Staton MD [address] [place] [address], [address], [facility] 06/19/2016 11:43:35 06/06/19 17 US Guided Knee Joint Injection completed Dejan Staton MD [address] [place] [address], [address], [facility] 06/05/2016 12:55:35 05/31/19 17 US Guided Knee Joint Injection completed Dejan Staton MD [address] [place] [address], [address], [facility] 05/30/2016 16:08:27 03/06/20 16 Knee Injection w/o US completed Dejan Staton MD [address] [place] [address], [address], [facility] 03/06/2016 14:07:50 02/28/20 16 Knee Injection w/o US completed Dejan Staton MD [address] [place] [address], [address], [facility] 02/28/2016 11:59:55 01/04/20 16 [address]: Therapeutic Exercise completed Lianne Ricks, PT [address] [place], [address], [facility] 01/04/2016 07:51:08 01/04/20 16 51824: Manual Therapy completed Lianne Ricks, PT [address] [place], [address], [facility] 01/04/2016 07:51:08 01/04/20 16 39548: Ultrasound (1:1) completed Lianne Ricks, PT [address] [place], [address], [facility] 01/04/2016 07:51:08 01/01/20 16 08108: Therapeutic Exercise completed Lianne Ricks, PT [address] [place], [address], [facility] 01/01/2016 14:51:47 01/01/20 16 61433: Manual Therapy completed Lianne Ricks, PT [address] [place], [address], [facility] 01/01/2016 14:51:08 01/01/20 16 65218: Ultrasound (1:1) completed Lianne Ricks, PT [address] [place], [address], [facility] 01/01/2016 14:50:06 12/29/19 16 01447: Manual Therapy completed Lianne Ricks, PT [address] [place], [address], [facility] 12/29/2015 16:35:56 12/29/19 16 65379: Ultrasound (1:1) completed Lianne Ricks, PT [address] [place], [address], [facility] 12/29/2015 16:35:56 12/22/19 16 23844: Manual Therapy completed Lianne Ricks, PT [address] [place], [address], [facility] 12/22/2015 13:33:59 12/22/19 16 60731: Ultrasound (1:1) completed Lianne Ricks, PT [address] [place], [address], [facility] 12/22/2015 13:33:59 12/19/19 16 55633: Manual Therapy completed Lianne Ricks, PT [address] [place], [address], [facility] 12/19/2015 08:36:59 12/19/19 16 70810: Ultrasound (1:1) completed Lianne Ricks, PT [address] [place], [address], [facility] 12/19/2015 08:35:58 12/08/19 16 87800: Therapeutic Exercise completed Lianne Ricks, PT [address] [place], [address], [facility] 12/10/2015 11:37:41 12/08/19 16 33696: Ultrasound (1:1) completed Lianne Ricks, PT [address] [place], [address], [facility] 12/10/2015 11:38:20 11/06/19 16 02976: PT Evaluation completed Lianne Ricks, PT [address] [place], [address], [facility] 11/06/2015 10:38:25 02/03/20 15 97909: PT Evaluation completed Lianne Ricks, PT [address] [place], [address], [facility] 02/03/2015 07:00:16 01/06/20 14 76528: Therapeutic Exercise completed Lianne Ricks, PT [address] [place], [address], [facility] 01/05/2014 11:13:00 12/31/19 14 01529: PT Evaluation completed Lianne Ricks, PT [address] [place], [address], [facility] 12/31/2013 06:56:43 12/31/19 14 Treatment and Advice completed Lianne Ricks, PT [address] [place], [address], [facility] 12/30/2013 09:41:15 Imaging Results None recorded. Procedure Notes None recorded. Medical Equipment None Reported. Allergies No known drug allergies Medications Name Sig Start Date Stop Date Status Note LastModified by Organization Details LastModified Time diana covid-19 ag card home test kit 09/05 completed Not Available Not Available Not Available doxycycli ne hyclate 100 mg capsule 01/26 completed Not Available Not Available Not Available azithromy mario 250 mg tablet Take 2 tablets every day by oral route for 1 day. 09/01 completed Not Available Not Available Not Available valacyclo vir 1 gram tablet 01/26 completed Not Available Not Available Not Available minocycli ne 100 mg capsule Take 1 capsule 3 times a week by oral route as directed . 09/05 completed Not Available Not Available Not Available famotidin e 20 mg tablet Take 1 tablet twice a day by oral route for 28 days. 02/21 completed No longer taking Not Available Not Available Not Available Silvadene 1 % topical cream 2007 active Take 1.00 applics twice daily Not Available Not Available Not Available tamsulosi n 0.4 mg capsule Take 1 capsule every day by oral route. 02/21 completed Not taking anymore Not Available Not Available Not Available cephalexi n 500 mg capsule TAKE 2 CAPSULES BY MOUTH THE NIGHT BEFORE THE PROCEDUR E, AND 2 CAPSULES THE MORNING OF 06/24 completed Not Available Not Available Not Available omeprazol e 20 mg capsule,d elayed release TAKE ONE CAPSULE BY MOUTH EVERY DAY 02/13 completed Not Available Not Available Not Available Drysol Dab-O-Mat ic 20 % topical solution active Not Available Not Available Not Available zolpidem 5 mg tablet Take 1 tablet every day by oral route as needed. 01/26 completed Not Available Not Available Not Available fluticaso ne propionat e 50 mcg/actua tion nasal spray,debi pension INHALE 2 SPRAYS IN EACH NOSTRIL EVERY DAY 11/29 completed Not Available Not Available Not Available finasteri de 5 mg tablet Take 1 tablet every day by oral route for 30 days. 2024 active Not Available Not Available Not Avai lable minocycli ne 100 mg tablet active Not Available Not Available Not Available Euflexxa 10 mg/mL (mw 2.4-3.6 million) intra-art icular syringe inject 1 syringe intrarti cular to bilatera l knees each week for 3 weeks 06/24 completed Not Available Not Available Not Available QuickVue At-Home COVID-19 Test kit TEST DIRECTED TODAY 09/05 completed Not Available Not Available Not Available Vitals Date Recorded Body height Body temperature Heart rate Systolic blood pressure Diastolic blood pressure Provider Name and Address Organization Details Last Updated DateTime 04/14/2020 182.88 cm 95.9 [degF] 94 /min 119 mm[Hg] 79 mm[Hg] Kalyani Garcia [facility] 1 14:10:06 Date Recorded Body height Body mass index (BMI) Body weight Body temperature Heart rate Oxygen saturation Oxygen saturation in Arterial blood by Pulse oximetry Systolic blood pressure Diastolic blood pressure Provider Name and Address Organization Details Last Updated DateTime 5 180.98 cm 27.2 kg/m2 58675.8 g 97.4 [degF] 63 /min 97 % 97 % 122 mm[Hg] 86 mm[Hg] Audelia Nguyen Gonzalez [facility] 5 08:26:34 Date Recorded Heart rate Body weight Body mass index (BMI) Body height Systolic blood pressure Diastolic blood pressure Provider Name and Address Organization Details Last Updated DateTime 2 68 /min 97103.2 8 g 27.4 kg/m2 181.61 cm 112 mm[Hg] 64 mm[Hg] Beth Dang [facility] 2 09:23:33 Date Recorded Body height Body mass index (BMI) Body weight Heart rate Systolic blood pressure Diastolic blood pressure Provider Name and Address Organization Details Last Updated DateTime 3 181.61 cm 26.3 kg/m2 66068.1 4 g 64 /min 118 mm[Hg] 64 mm[Hg] Beth Dang [facility] 3 09:21:54 Date Recorded Body height Body mass index (BMI) Body weight Heart rate Systolic blood pressure Diastolic blood pressure Provider Name and Address Organization Details Last Updated DateTime 4 180.98 cm 27.6 kg/m2 74551.0 4 g 80 /min 118 mm[Hg] 80 mm[Hg] Amy tavera MA [facility] 4 14:58:10 Social History Question Answer Notes LastModified by Organizat ion Details LastModified Time Tobacco Smoking Status Former Smoker occ smoker. social smoker 15 yrs Not Available [facility]/2010 02:07:56 Do You Have An Advance Directive? Yes Information n ot available 02/14/2011 Do You Wear A Helmet When Biking? Yes Information not available 05/08/2015 What Is Your Level Of Caffeine Consumption? Moderate Information not available 01/27/2024 How Much Tobacco Do You Chew? None Information not available 02/17/2013 What Type Of Diet Are You Following? REGULAR [id number] Information n ot available 02/14/2011 Education 4 Year College Information not available 05/08/2015 Have There Been Any Changes To Your Family Or Social Situation? No Information not available 01/27/2024 When Did You Quit Smoking? 16+yearssin celastcigar ette Information not available 05/08/2015 How Many Days In The Past Year Have You Had A Heavy Drinking Consumption (4+ Female, 5+ Male)? 4 Information not available 02/22/2020 Are There Any Guns Present In Your Home? No Information not available 05/08/2015 Do You Use Insect Repellent Routinely? No Information not available 01/27/2024 Live Alone Or With Others? With Others Information not available 06/06/2011 Patient Has Health Care Proxy Signed And In Chart Yes [email or web address] Information not available 02/18/2019 CCM Consent Discussion 08/09/2024 [email or web address] Information not available 08/30/2024 [facility] rmation not available 06/06/2011 Mosquito Repellent Used Routinely No PRN Information not available 02/16/2018 What Was The Date Of Your Most Recent Tobacco Screening? 08/09/2024 Information not available 08/09/2024 How Many Children Do You Have? 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 10packyears Information not available 05/08/2015 What Is Your Relationship Status? Information not available 09/04/2021 Do You Use Your Seat Belt Or Car Seat Routinely? Yes Information not available 09/04/2021 Seat Belts Used Routinely Yes Information not available 05/08/2015 Smoke Alarm In Home Yes Information not available 05/08/2015 Do You Have Smoke And Carbon Monoxide Detectors In Your Home? Yes Information not available 09/04/2021 At What Age Did You Start Smoking Tobacco? 17 Information not available 02/17/2013 Are You Passively Exposed To Smoke? No Information not available 01/27/2024 How Much Tobacco Do You Smoke? No Information not available 05/08/2015 General Stress Level Medium Information n ot available 02/14/2011 Do You Use Sunscreen Routinely? Yes [email or web address] Information not available 05/08/2015 How Many Years Have You Smoked Tobacco? 15 [email or web address] Information not available 05/08/2015 How Many Days In The Past Year Have You Consumed 5 Or More Drinks? 5 Information not available 01/27/2024 Sex: Male Functional Status Question Answer Note LastModified by Organizat ion Details LastModified Time Do you use any illicit or recreational drugs? No Information not available 01/27/2024 Do you or have you ever used any other forms of tobacco or nicotine? No Information not available 09/04/2021 Do you or have you ever used smokeless tobacco? Never used smokeless tobacco Information not available 02/18/2019 Are you currently employed? 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 Never used electronic cigarettes Information not available 02/18/2019 What is your exercise level? Heavy Information not available 01/27/2024 Mental Status None recorded. Family History Relationship Description Onset Age of this Age Resolved Age Notes LastModified by Organization Details LastModified Time Mother Heart disease 75 [id number] Not available 11/09/2012 03:00:58 Father Dementia 77 [id number] Not available 11/09/2012 03:00:58 Medical History No medical history recorded. Immunizations Vaccine Type Date Status Note Provider Nam e and Address Organization Details Recorded Time Influenza, split virus, quadrivalent, PF 5 completed Not Available [facility] 04/17/2019 02:20:10 Tdap 6 completed Not Available [facility] 04/17/2019 02:32:26 influenza, intradermal, quadrivalent, preservative free 6 completed Not Available [facility] 04/17/2019 02:23:30 Influenza, split virus, quadrivalent, PF 7 completed Not Available [facility] 04/17/2019 02:22:08 Influenza, split virus, quadrivalent, PF 8 completed Not Available [facility] 04/17/2019 02:23:01 Influenza, split virus, quadrivalent, PF 9 completed Not Available [facility] 04/17/2019 02:30:33 Influenza, split virus, quadrivalent, PF 0 completed Kenyetta Muhammad RN [facility] 02/21/2020 09:14:34 Influenza, split virus, trivalent, PF 4 completed Amy De Souza MA [facility] 01/27/2024 15:51:28 COVID-19, mRNA, LNP-S, PF, 30 mcg/0.3 mL dose 1 completed Lorna Yin MA [facility] 2021 11:24:23 COVID-19, mRNA, LNP-S, PF, 30 mcg/0.3 mL dose 2 completed Beth Dang MA [facility] 06/29/2021 08:49:43 Influenza, split virus, quadrivalent, preservative 2 completed Karolyn [place], [facility] 01/22/2022 15:05:15 zoster recombinant 2 completed Karolynchuy [place], [facility] 01/22/2022 15:06:07 COVID-19, mRNA, LNP-S, bivalent, PF, 30 mcg/0.3 mL dose 2 completed ROBERT Lopez, [facility] 01/25/2022 14:36:50 zoster recombinant 3 completed Marjorie Bowling LPN null, [facility] 05/19/2022 11:56:58 COVID-19, mRNA, LNP-S, PF, 50 mcg/0.5 mL 3 [facility] 08:30:15 influenza, unspecified formulation 3 completed Héctor León [facility] 03/03/2023 09:04:20 Past Encounters Encounter ID Performer Location Encounter Start Date Encounter Closed Date Diagnosis/Indication Diagnosis SNOMED-CT Code Diagnosis ICD10 Code Diagnosis Note [id number] Kamran Kelly MD , [facility], OFFICE [address] [place] [address] 04/17/2007 15:06:33 04/20/2008 02:02:29 [id number] [facility] - [address] [address] 04/27/2007 09:08:18 04/27/2007 09:08:24 [id number] Lianne Ricks , PT Physical Therapy, [facility] [address] [place] [address] 04/27/2007 09:08:28 04/29/2007 12:23:42 [id number] Lianne Ricks , PT Physical Therapy, [address] [address] 05/06/2007 08:27:00 05/06/2007 14:17:23 [id number] Lianne Ricks , PT Physical Therapy, [address] [address] 05/08/2007 09:12:34 05/08/2007 14:34:50 [id number] Lianne Ricks , PT Physical Therapy, [facility] [place] [address] 05/04/2007 10:27:54 05/11/2007 13:00:48 [id number] Lianne Ricks , PT Physical Therapy, [facility] [place] [place] [address] 05/11/2007 08:38:49 05/11/2007 16:01:02 [id number] Lianne Ricks , PT Physical Therapy, [address] [place] [address] 05/13/2007 08:33:09 05/14/2007 08:16:03 [id number] Lianne Ricks , PT Physical Therapy, [facility] Valent[address] [facility] [place] [address] 05/15/2007 08:36:26 05/18/2007 08:45:21 [id number] Lianne Ricks , PT Physical Therapy, [address] [place] [address] 05/25/2007 10:33:25 05/25/2007 16:30:49 [id number] Lianne Ricks , PT Physical Therapy, [address] [place] [address] 06/01/2007 09:34:32 06/02/2007 08:03:42 [id number] Lianne Ricks , PT Physical Therapy, [address] [place] [address] 06/05/2007 08:33:57 06/05/2007 15:20:01 [id number] Lianne Ricks , PT Physical Therapy, [address] [place] [address] 06/10/2007 08:37:50 06/10/2007 14:44:56 [id number] Lianne Ricks , PT Physical Therapy, [facility] Valentín [facility] [place] [address] 06/19/2007 08:31:47 06/22/2007 08:46:43 [id number] Lianne Ricks , PT Physical Therapy, [address] [place] [address] 07/01/2007 09:00:15 07/01/2007 14:20:21 [id number] MERCED Moreno FP, [facility], OFFICE [address] [place] [address] 09/14/2007 11:52:20 04/20/2008 02:02:29 [id number] Lianne Ricks , PT Physical Therapy, [address] [address] 09/16/2007 07:31:19 09/17/2007 08:12:53 [id number] Kamran Kelly MD , [facility], [address] [place] [address] 08/28/2007 11:17:37 09/23/2007 14:21:15 [id number] Lianne Ricks , PT Physical Therapy, [address] [address] 09/25/2007 15:33:12 09/25/2007 17:08:57 [id number] Lianne Ricks , PT Physical Therapy, [address] [address] 6 09/30/2007 13:22:32 10/01/2007 13:23:09 [id number] Lianne Ricks , PT Physical Therapy, [address] [address] 6 10/08/2007 10:33:35 10/09/2007 09:07:35 [id number] Lianne Ricks , PT Physical Therapy, [address] [address] 6 10/15/2007 10:34:09 10/19/2007 09:06:46 [id number] Lianne Ricks , PT Physical Therapy, [address] [address] 6 10/28/2007 10:34:38 10/29/2007 11:51:14 [id number] Lianne Ricks , PT Physical Therapy, [address] [address] 6 11/09/2007 09:34:18 11/10/2007 13:59:50 [id number] Lianne Ricks , PT Physical Therapy, [address] [address] 12/04/2007 09:42:41 02/24/2008 08:15:50 [id number] Kamran Kelly MD , [facility], [address] [place] [address] 03/15/2008 14:41:58 04/20/2008 02:02:29 [id number] [facility] - [address] [place] [address] 03/15/2008 15:14:54 03/15/2008 15:15:01 [id number] [facility] - [address] [place] [address] 6 04/11/2008 13:14:31 04/11/2008 13:14:38 [id number] Lianne Ricks , PT Physical Therapy, [address] [place] [address] 05/25/2008 08:05:40 05/26/2008 15:55:00 [id number] Lianne Ricks PT Physical Therapy, [address] [address] 06/01/2008 08:35:17 06/01/2008 14:47:10 [id number] Kamran Kelly MD , [facility], [address] [place] [address] 08/25/2008 11:40:46 08/29/2008 15:44:17 [id number] Lianne Ricks PT Physical Therapy, [address] [address] 6 11/25/2008 14:24:33 11/28/2008 10:32:21 [id number] Lianne Ricks PT Physical Therapy, [address] [address] 6 12/02/2008 10:40:28 12/02/2008 15:32:19 [id number] Lianne Ricks PT Physical Therapy, [address] [address] 6 12/07/2008 13:36:42 12/08/2008 09:24:42 [id number] Lianne Ricks PT Physical Therapy, [address] [address] 6 12/09/2008 11:39:03 12/12/2008 09:59:56 [id number] Lianne Ricks PT Physical Therapy, [address] [address] 6 12/14/2008 11:07:41 12/15/2008 11:18:34 [id number] Lianne Ricks PT Physical Therapy, [address] [address] 6 12/16/2008 11:02:40 12/16/2008 15:17:03 [id number] Lianne Ricks PT Physical Therapy, [address] [address] 6 12/19/2008 13:04:30 12/19/2008 15:43:15 [id number] Lianne Ricks PT Physical Therapy, [address] [address] 6 12/26/2008 11:01:47 12/26/2008 15:50:43 [id number] [facility] - [address] [address] 6 09/07/2008 06:42:22 09/07/2008 06:42:27 [id number] Kamran Kelly MD , [facility], [address]ICE [address] [place] [address] 11/27/2009 10:47:13 11/29/2009 12:14:52 [id number] Lianne Ricks PT Physical Therapy, [address] [address] 01/01/2010 11:04:03 01/04/2010 13:36:43 [id number] Lianne Ricks PT Physical Therapy, [address] [address] 6 01/10/2010 11:33:45 01/11/2010 08:11:30 [id number] Lianne Ricks PT Physical Therapy, [address] [address] 6 01/17/2010 11:18:16 01/18/2010 08:55:38 [id number] Lianne Ricks PT Physical Therapy, [address] [address] 6 01/24/2010 11:01:25 01/25/2010 07:55:09 [id number] Lianne Ricks PT Physical Therapy, [address] [address] 6 02/08/2010 11:01:55 02/09/2010 07:51:45 [id number] Lianne Ricks PT Physical Therapy, [address] [address] 6 02/28/2010 10:30:53 02/28/2010 11:09:03 [id number] Kamran Kelly MD , [facility], [address] [place] [address] 06/06/2011 11:15:06 06/10/2011 11:01:30 [id number] Kamran Kelly MD , [facility], [address] [place] [address] 02/10/2012 07:59:43 02/10/2012 08:39:56 [id number] Hunter Garcia MD , [facility], [address] [place] [address] 08/31/2012 10:00:46 08/31/2012 10:23:35 [id number] Kamran Kelly MD , [facility], [address] [place] [address] 02/17/2013 14:56:32 02/17/2013 16:00:18 Pain of joint 11538040 Hearing loss 38953081 [id number] Lianne Ricks , PT Physical Therapy, [address] [address] 6 04/05/2013 13:31:03 04/07/2013 07:33:11 Pain of elbow region 67520100 [id number] Lianne Ricks , PT Physical Therapy, [address] [address] 6 04/16/2013 13:29:55 04/16/2013 15:26:05 Pain of elbow region 19229979 [id number] Lianne Ricks , PT Physical Therapy, [address] [address] 6 04/30/2013 13:29:06 05/03/2013 07:18:40 Pain of elbow region 59098432 [id number] Lianne Ricks , PT Physical Therapy, [address] [address] 6 05/14/2013 13:38:55 05/14/2013 14:26:21 Pain of elbow region 85481822 [id number] Kamran Kelly MD , [facility], [address] [place] [address] 09/01/2013 14:52:33 09/06/2013 14:06:22 Adult health examination [id number] see Risk Assessment and Lifestyle Change Counseling section above Counseling [id number] Hemochromatosis [id number] followed by gi, continued regular phlebotomy [id number] Lianne Ricks , PT Physical Therapy, [facility] [address] [place] [address] 12/30/2013 08:55:10 12/31/2013 07:20:43 Pain of shoulder region 94706300 [id number] Lianne Ricks , PT Physical Therapy, [address] [address] 6 01/05/2014 10:07:52 01/05/2014 11:50:27 Pain of shoulder region 99809079 [id number] Lianne Ricks , PT Physical Therapy, [address] [address] 6 02/02/2015 06:56:35 02/03/2015 07:08:45 Knee pain 99547081 M25.561 M25.832 [id number] Kamran Kelly MD , [facility], [address] [place] [address] 02/08/2015 15:30:59 02/10/2015 14:20:05 Screening for disorder 593863908 Z11.59 Gastric reflux 648542764 K21.9 chroic clearing of throaty likley to reflux will treat with zantac for now and see if resolves Increased frequency of urination 669587112 R35.0 frequent urination will see urology Active or passive immunization 916504563 Z23 [id number] Kamran Kelly MD , [facility], [address] [place] [address] 05/08/2015 08:10:23 05/08/2015 09:25:15 Adult health examination 004590114 Z00.00 see Risk Assessment and Lifestyle Change Counseling section above Counseling 122725857 Z71 .9 Administra tion of diphtheria, pertussis, and tetanus vaccine 673583374 Z23 Allergic rhinitis 604978 04 J30.9 Benign pro static hyperplasia 721686288 D29.1 Hemochromatosis 67778524 6 E83.119 followed by gi, continued regular phlebotomy [id number] Lianne Ricks , PT Physical Therapy, [facility] [address] [place] [address] 11/06/2015 10:32:28 11/06/2015 14:23:12 Knee pain 05301016 M25.561 M25.121 [id number] Kamran Kelly MD , [facility], [address] [place] [address] 11/30/2015 10:04:14 12/06/2015 13:19:03 Active or passive immunization 847095467 Z23 Insomnia 828837525 G47.0 0 Posterior rhinorrhea 758 08108 R09.82 will try decongesta nts if works will contact me and eunicen try iatropium nasal spray, will cnsider reflux as a cause [id number] Dejan Staton MD Sports Medicine, [address] [address] 12/06/2015 07:58:54 12/06/2015 09:01:36 Knee pain 29225377 M25.561 M25.562 Maricarmen is a 55-year-ol d male with bilateral knee pain consistent with quadriceps tendinitis . I am unable to reproduce the pain today in the office to palpation over resisted range of motion and he has no evidence of intra-tom cular pathology on exam. He has gone to 2 sessions of physical therapy and I have advised to continue with physical therapy for this. We discussed that as needed use of NSAID medication and icing after activity as well. He also avoid running on hills to see if this reduces the irritation . He'll plan a follow-up in 8 weeks for reevaluati on. [id number] Lianne Ricks , PT Physical Therapy, [facility] [address] [place] [address] 12/08/2015 14:06:18 12/11/2015 06:56:48 Knee pain 24213688 M25.561 M25.035 [id number] Lianne Ricks , PT Physical Therapy, [facility] [address] [place] [address] 12/19/2015 07:46:23 12/19/2015 08:51:00 Knee pain 01778176 M25.561 M25.956 [id number] Lianne Ricks , PT Physical Therapy, [facility] [address] [place] [address] 12/22/2015 13:32:04 12/22/2015 14:54:54 Knee pain 57772844 M25.561 M25.610 [id number] Lianne Ricks , PT Physical Therapy, [address] [address] 12/29/2015 15:41:49 01/01/2016 08:16:02 Knee pain 60524406 M25.561 M25.162 [id number] Lianne Ricks , PT Physical Therapy, [address] [address] 01/01/2016 13:31:47 01/02/2016 07:24:32 Knee pain 35327320 M25.561 M25.525 [id number] Lianne Ricks , PT Physical Therapy, [address] [address] 01/04/2016 07:02:07 01/04/2016 15:14:49 Knee pain 62138116 M25.561 M25.488 [id number] Dejan Staton MD Sports Medicine, [address] [address] 02/07/2016 08:24:14 02/07/2016 09:25:06 Knee pain 03430672 M25.561 M25.562 Maricarmen is a 55-year-ol d male with bilateral knee pain that he localizes to his quadriceps tendon bilaterall y several centimeter s proximal to its insertion on the patella. I am unable to reproduce any pain to palpation in this region or with resisted knee extension. He does however have significan t discomfort with patellar compressio n testing that somewhat reproduces the pain that he has been having. I do wonder if potentiall y the discomfort he is feeling is radiation of pain secondary to patellofem oral osteoarthr itis or chondromal acia. I had an extensive discussion with Maricarmen today regarding options for him. I have asked that he obtain x-rays of both knees to evaluate for any osteoarthr itis as well as lab testing for potential rheumatolo gic causes of his pain. At this point we have discussed options including referring him to Dr. Rinku figueredo for considerat ion of platelet rich plasma injections of his quadriceps tendons. We also discussed the option of continued physical therapy as well as performing a diagnostic and potentiall y therapeuti c corticoste roid injection of his knee joint for treatment of patellofem oral discomfort . He'll plan to follow up in the office in 2 weeks after his x-rays and blood work for reevaluati on. [id number] Dejan Staton MD Sports Medicine, [address] [address] 02/28/2016 07:52:01 02/28/2016 08:53:19 Knee pain 71862609 M25.561 M25.562 Maricarmen is a 56-year-ol d male with bilateral knee pain that I feel may be related to chondromal acia patella. His recent x-rays are unremarkab le for any significan t osteoarthr itic changes. In addition his recent lab work for a possible rheumatolo gic cause of his discomfort is also normal. He has been describing the pain predominan tly as several centimeter s proximal to his patella bilaterall y but I have never been able to reproduce the pain with palpation in this region. He has failed to see improvemen t with physical therapy and other conservati ve measures and is continuing to have significan t discomfort . A decision was made to perform a left knee joint corticoste roid injection both as a diagnostic and potentiall y therapeuti c interventi on. The risks and benefits were discussed with Maricarmen beforehand which he fully understand s. He tolerated the procedure well without complicati on. I have advised that he ice and rest his knee over the next week and gradually resume normal activities . He will follow up with me in 6-8 weeks for reevaluati on. [id number] Dejan Staton MD Sports Medicine, [address] [address] 03/06/2016 12:59:24 03/06/2016 15:56:09 Knee pain 99261206 M25.561 M25.562 Maricarmen is a 56-year-ol d male with bilateral knee pain that I feel is related to chondromal acia patella. One week ago he had a corticoste roid injection in his left knee joint and has had complete resolution of his discomfort even with provocativ e maneuvers. He santy connolly continues to have pain in his right knee. I again had a reviewed today with Maricarmen regarding the cause of his pain and treatment options. He unfortunat cathleen has failed to improve with physical therapy and the use of NSAIDs but has done quite well in the left knee with a steroid injection. We discussed also the potential for viscosuppl ementation as a treatment option in the future. A decision was made to perform a right knee joint corticoste roid injection. He tolerated this well without complicati on. I have advised that he ice and rest his knee over the next week and gradually resume normal activities . He'll plan to follow up with me in an as-needed basis for any worsening or return of his knee pain. 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 He has no joint effusion or mechanical symptoms and no evidence of meniscal pathology or ligamentou s injury to his knees. His previous weight bearing x-rays revealed no osteoarthr itis or bony injury. He has had transient complete relief of symptoms with steroid injections but santy connolly has had return of symptoms. I feel he would do well with [facility] mentation which we had planned to start today, santy connolly only half his medication has arrived for one knee due to an error from the pharmacy. We have contacted the pharmacy while he is in the office and they will planned overnight the additional medication and Maricarmen will plan to follow up tomorrow for bilateral knee joint injections of Euflexxa. 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 He has failed to have long-stand ing improvemen t with physical therapy and corticoste roid injections of the knee joint. He underwent bilateral Euflexxa injections in the office today under ultrasound guidance. I have advised that he ice and rest his knees over the next week. He will plan to follow up with me in one week for his second set of injections . 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 He underwent his second injection of Euflexxa in his bilateral knee joints today in the office under ultrasound guidance. He tolerated this well without complicati on. I again advised that he ice and rest his knees over the next week. He'll follow up in 14 days for his third and final injection. 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 He tolerated this procedure well without complicati on. I've advised ice and rest both knees over the next week and gradually resume normal activities . We discussed initially resuming the use of a stationary bike and/or elliptical and only gradually returning to running or high impact activities . He'll plan to follow up with me in 3 months for reevaluati on. [id number] Kamran Kelly MD , [facility], OFFICE [address] [place] [address] 06/24/2016 10:27:08 06/26/2016 15:36:33 Cigarette smoker 14496283 F17.210 discuused greater than 3 monutes even 1 cigarette increases risk Tobacco user 758114898 Z 72.0 Gastroesop hageal reflux disease 922410862 K21.9 discussed throat clearing 15/25 minutes will try omeprazole and f/u 6 weeks [id number] Dejan Staton MD Sports Medicine, [address] [address] 10/23/2016 10:31:35 10/23/2016 14:02:59 Knee pain 39946723 M25.561 M25.562 Maricarmen is a 56-year-ol d male with persistent bilateral knee pain and recent MRI of both knees demonstrat ing no evidence of meniscal or ligamentou s pathology. His right knee MRI does demonstrat e some patellofem oral osteoarthr itis particular ly along the medial facet. In addition in my opinion the left knee MRI also demonstrat ed some mild chondromal acia of the patellofem oral cartilage. We reviewed these findings today in the office as well as discussing future treatment options. Maricarmen and I did discuss whether surgical interventi on beneficial and I advised that this would be highly unlikely but nonetheles s he does plan to follow up with Dr. Lianne Regalado for his opinion which I more than welcome. In review, Maricarmen did have full relief of his symptoms with corticoste roid injections of his knee joints unfortunat cathleen this symptom relief was only transient. He did not have any significan t relief with previous viscosuppl ementation . I did advise that he may benefit from a repeat trial viscosuppl ementation in the future which he will consider. I am happy to see him back on an as-needed basis for further care. [id number] Garo Baird MD , [facility], OFFICE [address] [place] [address] 02/13/2017 15:02:19 02/14/2017 08:43:14 Adult health examination 801494829 Z00.00 see Risk Assessment and Lifestyle Change Counseling section above Counseling 224270395 Z71 .9 Posterior rhinorrhea 758 32321 R09.82 Active or passive immunization 816717672 Z23 Knee pain 14360351 M25.5 69 [id number] Lianne Ricks , PT Physical Therapy, [facility] [address] [place] [address] 03/26/2017 13:58:46 03/28/2017 15:44:47 Pain in right knee 0395126120 70080 M25.561 Pain in left knee 248141 8296 14176 M25.320 [id number] Lianne Ricks , PT Physical Therapy, [facility] [address] [place] [address] 04/07/2017 14:01:54 04/08/2017 09:15:31 Pain in right knee 7562486571 46399 M25.561 Patient Goals: Be able to squat and climb stairs for ADLs without knee pain Clinical Goals: 1. Demonstrat e symmetric pain free active, passive and resisted motions of the . 2. Demonstrat e sufficient muscular endurance to meet functional demands. Treatment Plan: Patient to return for visits over weeks. We expect significan t change in pain, impairment and function in this time frame. Treatment to Include: Therapeuti c exercise and manual therapy Pain in left knee 463132 2680 80126 M25.938 [id number] Lianne Ricks , PT Physical Therapy, [address] [address] 04/24/2017 08:31:00 04/24/2017 10:28:39 Pain in right knee 7301164607 01781 M25.561 Patient Goals: Be able to squat and climb stairs for ADLs without knee pain Clinical Goals: 1. Demonstrat e symmetric pain free active, passive and resisted motions of the . 2. Demonstrat e sufficient muscular endurance to meet functional demands. Treatment Plan: Patient to return for visits over weeks. We expect significan t change in pain, impairment and function in this time frame. Treatment to Include: Therapeuti c exercise and manual therapy Pain in left knee 697072 9558 88283 M25.640 [id number] Lianne Ricks , PT Physical Therapy, [address] [address] 05/08/2017 06:58:51 05/08/2017 15:28:12 Pain in right knee 6701412095 52434 M25.561 Patient Goals: Be able to squat and climb stairs for ADLs without knee pain Clinical Goals: 1. Demonstrat e symmetric pain free active, passive and resisted motions of the . 2. Demonstrat e sufficient muscular endurance to meet functional demands. Treatment Plan: Patient to return for visits over weeks. We expect significan t change in pain, impairment and function in this time frame. Treatment to Include: Therapeuti c exercise and manual therapy Pain in left knee 313616 3304 10806 M25.338 [id number] Carter Irving MD , [facility], OFF[address] [place] [address] 01/01/2018 13:43:05 01/02/2018 12:13:49 Active or passive immunization 450724807 Z23 Diarrhea 89966899 R19.7 [id number] Garo Baird MD , [facility], [address] [place] [address] 02/16/2018 09:27:25 02/16/2018 10:12:17 Adult health examination 688880097 Z00.00 see Risk Assessment and Lifestyle Change Counseling section above Counseling 617895730 Z71 .9 Depression screening 171 641805 Z13.89 depression screening tool administer ed, entered into emr, scored and discussed, time greater than 7.5 minutes [id number] Kamran Kelly MD , [facility], [address] [place] [address] 07/16/2018 13:52:13 07/17/2018 12:35:02 Lipoma of skin 581607397 D17.30 reassured can have removed if cauing sx Insomnia 314507944 G47.0 0 [id number] Garo Baird MD , [facility], [address] [place] [address] 02/18/2019 09:11:07 02/18/2019 10:04:51 Adult health examination 828173252 Z00.00 see Risk Assessment and Lifestyle Change Counseling section above Counseling 330054607 Z71 .9 Depression screening 171 779018 Z13.89 depression screening tool administer ed, entered into emr, scored and discussed, time greater than 7.5 minutes Active or passive immunization 319048473 Z23 Benign pro static hyperplasia with outflow obstruction 852368424 N40.1 [id number] Greta Fabian DO , [facility], [address] [place] [address] 04/05/2019 13:30:08 04/05/2019 17:37:44 Gastroesophageal reflux disease 273949875 K21.9 Suspect silent reflux. Pt advised to avoid triggering foods, eating within 2 hours of bed, sleeping with head elevated, avoiding alcohol. Pt to do trial of pepcid. If some improvemen t but not adequate will do trial of PPI. If no improvemen t then patient to return for further evaluation . [id number] Garo Baird MD , [facility], [address] [place] [address] 04/26/2019 17:22:52 04/27/2019 12:22:08 Calcification of coronary artery 536579531 I25.84 Benign pro static hyperplasia 878787152 N40.0 [id number] Kamran Kelly MD , [facility], [address] [place] [address] 11/23/2019 11:16:46 11/23/2019 14:39:39 Abscess 378740838 L02.91 You will likely need incision and drainage. Someone from our office will call to arrange [id number] Caroline Moore MD , [facility], [address] [place] [address] 11/23/2019 14:22:48 11/23/2019 15:53:48 Infection of sebaceous cyst 191522587 L72.3 drained today; wound care instructio ns given; call if still oozing in 3 days [id number] Kamran Kelly MD , [facility], [address] [place] [address] 02/21/2020 07:11:07 02/22/2020 08:31:40 Active or passive immunization 902872321 Z23 [id number] Garo Baird MD , [facility], [address] [place] [address] 02/22/2020 08:06:03 02/22/2020 15:49:24 Adult health examination 070301912 Z00.00 see Risk Assessment and Lifestyle Change Counseling section above Counseling 806656743 Z71 .9 including cardivascu lar risk reduction counseling Depression screening 171 944356 Z13.89 Screening for alcohol abuse 952577676 Z13.39 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 0 H02.409 for surgery [id number] Garo Baird MD , [facility], [address] [place] [address] 09/04/2021 09:12:43 09/04/2021 10:04:56 Adult health examination 237673513 Z00.00 see Risk Assessment and Lifestyle Change Counseling section above Counseling 877004804 Z71 .9 including cardivascu lar risk reduction counseling Depression screening 171 Z13.31 depression screening tool administer ed, entered into emr, scored and discussed, time greater than 7.5 minutes Screening for alcohol abuse 436536179 Z13.39 Eliseyogonzalez 435023456 L71.9 Adenomatou s polyp of colon 992656071 D12.6 [id number] Garo Baird MD FP, [facility], [address] [place] [address] 09/05/2022 09:11:58 09/13/2022 10:14:34 Adult health examination [id number] Z00.00 see Risk Assessment and Lifestyle Change Counseling section above Depression screening 171 Z13.31 depression screening tool administer ed Screening for alcohol abuse 877337626 Z13.39 Alcohol use screening tool administer ed Screening for malignant neoplasm of prostate 818671670 Z12.5 PSA testing for ages 55-69 risks and benefits discussed patient declines testing. Insomnia 103628742 G47.0 0 [id number] Greta Fabian DO FP, [facility], [address] [place] [address] 01/27/2024 14:43:44 01/27/2024 15:32:48 Adult health examination 577079044 Z00.00 colon due 2027 Depression screening 171 Z13.31 depression screening tool administer ed Screening for alcohol abuse 636386733 Z13.39 Alcohol use screening tool administer ed Screening for malignant neoplasm of prostate 402186415 Z12.5 If you have a prostate, the U.S. Preventive Services Task Force advises not to make a PSA test a part of the standard exam for ages 55-69. Instead they recommend the uncertaint ies about the test be discussed and ordered only if a patient still wants it. Over their lifetimes as many as 50% or more of persons with a prostate will develop prostate cancer but only 2% of them will of prostate cancer. For those who chose to be screened for prostate cancer, if 1000 are screened with a psa test over a 15 year period there might be 1-2 deaths prevented however 235 persons will have a biopsy with risk of infection, bleeding and pain, 100 will have their prostate removed by surgery or radiation treatments and 60-70 of those will suffer incontinen ce or impotence. There is also the risk of anesthesia or radiation complicati ons. For those over 70, prostate cancer screening offered no benefit and risked pain, worry, expense and possibly shorter life expectancy . Counseled by member of primary health care team 148964237 Z71.9 We have used the 5 As (assess, advise, agree, assist, arrange) to evaluate your daily alcohol use and create strategies to improve your health. We discussed your alcohol use and the health risks associated with drinking. We explored ways to reduce or stop alcohol consumptio n to improve your overall health. We discussed resources available to support your goal to cut back or stop, including primary care behavioral health, AA, and medication s. Your personal goal: Active or passive immunization 131786203 Z23 Hemochromatosis 89159905 6 E83.119 Sometimes gets light-head ed with therapeuti c phlebotomy . Cervical lymphadenopathy 801372383 R59.0 Bilateral hearing loss 61988468 H91.93 Low blood pressure 78713 003 I95.9 [id number] Garo Baird MD , [facility], [address] [place] [address] 08/09/2024 08:15:17 08/13/2024 08:10:13 Dysuria 10637042 R30.0 Hyperplasi a of prostate 642962426 N40.1 Health Concerns Section Related Observation LastModified by Organization Detai ls LastModified Time None Recorded Concern Status LastModified by Organization Details LastModified Time None Recorded Advance Directives Directive Y: Payers Insurance Date Sequence Insurance Name Policy Number Policy Hayden Covered Member ID Hayden Member ID Guarantor Name 01/27/2024 2 [employer] (MEDICARE REPLACEMENT HMO) Maricarmen Ferrara [id number] Maricarmen Ferrara 08/06/2024 1 [place] Maricarmen Ferrara [id number] Maricarmen Ferrara 08/13/2024 2 [employer] (MEDICARE SUPPLEMENT) Maricarmen Ferrara [id number] Maricarmen Ferrara 07/06/2012 1 [facility] [id number] Sara Alexander [id number] 1 Maricarmen Josias 01/27/2024 1 [facility] [id number] Maricarmen Mariealen [id number] Maricarmen Ferrara 01/27/2024 1 [facility] (O) [id number] Maricarmen Mariealen [id number] Maricarmen Ferrara 06/29/2018 1 [facility] (O) [id number] Sara Alexander [id number] Maricarmen Josias 02/03/2024 1 [facility] [place] Maricarmen Mariealen [id number] Maricarmen Josias Notes Date Note Type Note Provider Name and Address Organization Details Recorded Time 04/14/2020 text/html Pt presents for Pre-op Physical. hx of stable hemochromatosis ,drooping eyelids which interfere with vision at times scheduled for surgery. Feeling well no chest pain or sob -no fever or chills Kamran Kelly MD [address] [place] [address], [phone] 04/19/2020 13:40:18 09/04/2021 text/html Physical Exam/MaleReported bypatient.PHAPatient is here for a Wellness Visit. He describes his health status as good. Patient's health is the same as last year.Risk Assessment and Lifestyle Change Counseling 50-64Reported bypatient.Coronary Artery Disease Risk Assessment:Family History of Coronary Artery Disease; No personal history of diabetes; No history of peripheral vascular disease, AAA, or carotid disease; No personal history of coronary artery disease Breast Cancer Risk Assessment:Family history of breast cancer one first degree relative; No history of breast cancer or dcis Colon Cancer Risk Assessment:No family history of colon polyps or cancer; No history of adenomatous colon polyps Lung Cancer Risk Assessment:Has used cigarettes;Has used cigarettes less than 30 pack years Fracture Risk Assessment:No unexplained fracture Cognitive/Behavioral Risk Assessment:No personal history of mental illness;Family history of mental illness Safety Risk Assessment:No evidence of abuse/neglect ROBERT Whelan, [facility] 09/04/2021 10:34:50 09/05/2022 text/html Risk Assessment and Lifestyle Change Counseling 50-64Reported bypatient.Coronary Artery Disease Risk Assessment:Family History of Coronary Artery Disease; No personal history of diabetes; No history of peripheral vascular disease, AAA, or carotid disease; No personal history of coronary artery disease Breast Cancer Risk Assessment:Family history of breast cancer one first degree relative; No history of breast cancer or dcis Colon Cancer Risk Assessment:No family history of colon polyps or cancer; No history of adenomatous colon polyps Lung Cancer Risk Assessment:Has used cigarettes Fracture Risk Assessment:No unexplained fracture Cognitive/Behavioral Risk Assessment:No personal history of mental illness; No family history of mental illness Safety Risk Assessment:No evidence of abuse/neglect Garo Baird MD [address] [place] [address], [phone] 09/05/2022 10:09:56 01/27/2024 text/html Risk Assessment and Lifestyle Change Counseling 50-64Reported bypatient.Coronary Artery Disease Risk Assessment:Family History of Coronary Artery Disease; No personal history of diabetes; No history of peripheral vascular disease, AAA, or carotid disease; No personal history of coronary artery disease Breast Cancer Risk Assessment:Family history of breast cancer one first degree relative; No history of breast cancer or dcis Colon Cancer Risk Assessment:No family history of colon polyps or cancer;History of adenomatous colon polyp Lung Cancer Risk Assessment:Has used cigarettes;Has used cigarettes less than 30 pack years Fracture Risk Assessment:No unexplained fracture Cognitive/Behavioral Risk Assessment:No personal history of mental illness; No family history of mental illness Safety Risk Assessment:No evidence of abuse/neglect Exercise counseling:Discussed the importance of daily physical activity; Discussed the importance of weight bearing exercise; running, biking, elliptical, weights Safety:Counseled about protecting skin from the sun and lowering the risk of skin cancer; Counseled about avoiding excessive and unsafe alcohol intake; Counseled about use of helmets for high velocity activiities; Counseled about home safety including use of smoke detectors, CO detectors, keeping home water temperature less than 120; Counseled about use of seat belts; An audit alcohol screening was performed and scored. Patient was asked about alcohol use. Advised about risks of alcohol. Personal risk was assessed. Patient agreed to plan and given information about available resources if needed. Discussion including screening and scoring greater than 7.5 minutes. History of Present IllnessThe patient, a former casual smoker with a history of hemochromatosis, presents for a routine check-up. The patient is generally healthy, exercises regularly, and manages hemochromatosis by giving blood every three months. Recently, the patient has noticed a decrease in blood pressure and occasional lightheadedness upon standing, particularly after being crouched down for a period of time. The patient also discusses alcohol consumption, expressing a desire to limit intake but finding it challenging, particularly in social situations. The patient is interested in a weight loss medication that a friend has been using, but understands it is only prescribed for diabetes. The patient also requests a hearing test, noting difficulty hearing in environments with a lot of ambient noise.Past Medical History- Hemochromatosis- Adenomatous polypMedications- Ibuprofen (as needed)Social History- Former smoker, used to smoke 10 packs a year- Patient drinks alcoholResults Greta Fabian DO [address] [place] [address], [phone], [facility] 01/27/2024 17:39:09 08/09/2024 text/html Urinary frequenc y ongoing. Intermittant.[facility] Garo Baird MD [address] [place] [address], [phone], [facility] 08/09/2024 08:52:16
== END 2024-09-23 14:10 | disposition home or self-care (01) ==
LOC: HO.BBR 14:09
PROVIDERS: PCP Family Medicine; Visit Provider Internal Medicine Gastroenterology
DX: Z13.89 Encounter for screening for other disorder (principal)

== ENCOUNTER 2024-12-23 14:08 | Outpatient (REF) | payer MEDICARE, SELFPAY ==
--- OUTSIDE RECORDS SUMMARY | 2024-12-23 18:35 | XMS_ITS | Encounter Summary ---
Author Organization [facility] Address [address] [place] [address] [place] [address] Phone Care Team Providers Care Mexican Food Maker Hand Name Role Phone Kamran Kelly MD Primary Care Provider [phone] Encounter Details Date Type Department Care Team (Late st Contact Info) Description 10/25/2020 Procedure Pass [facility] Endoscopy Admitting Dept Virtual Department [address] [place] [address] Social History Tobacco Use Types Packs/Day Years Used Date Smoking Tobacco: Former Cigarettes Q uit: 2018 Smokeless Tobacco: Never Alcohol Use Standard Drinks/Week Comments Yes 7 (1 standard drink = 0.6 oz pur e alcohol) Sex and Gender Information Value Date Recorded Sex Assigned at Not on file Legal Sex Male 9:49 PM EDT Gender Identity Not on file Sexual Orientation Not on file documented as of this encounter Plan of Treatment Not on file documented as of this encounter Visit Diagnoses Not on filedocumented in this encounter Care Teams Mexican Food Maker Hand Relationship Specialty Start Date End Date Kamran Kelly MD PCP - General Family Medicine 05/21/17 documented as of this encounter Additional Source Comments The information contained in this document represents components of the legal health record. It is not the complete legal health record.[facility]
--- OUTSIDE RECORDS SUMMARY | 2024-12-23 18:35 | XMS_ITS | Encounter Summary ---
Author Organization [facility] Address [address] [place] [address] Phone Care Team Providers Care At Risk Specialist Name Role Phone Kamran Kelly MD Primary Care Provider [phone] Encounter Details Date Type Department Care Team (Late st Contact Info) Description 05/21/2017 Transcribe Orders [facility] [address] [place] [address] Dustin Cooper MD [email or web address] Pigment cirrhosis (Primary Dx) Social History Tobacco Use Types Packs/Day Years Used Date Smoking Tobacco: Never Assessed Sex and Gender Information Value Date Recorded Sex Assigned at Not on file Legal Sex Male 9:49 PM EDT Gender Identity Not on file Sexual Orientation Not on file documented as of this encounter Plan of Treatment Not on file documented as of this encounter Results * (ABNORMAL) Iron and iron binding capacity (05/21/2017 7:21 AM EST) IRON 254(H) 45 - 160 ug/dL [facility] IRON BINDING CAPACITY NOT CALCULATED 228 - 428 ug/dL [facility] TRANSFERRIN SATURAT. NOT CALCULATED 20 - 55 % [facility] Blood 05/21/2017 7:21 AM EST 05/21/2017 7:23 AM EST us Dustin Cooper MD LAB BLOOD ORDERABLES Final Result [facility] [address] [address] * CBC and differential (05/21/2017 7:21 AM EST) WBC 3.41 3.40 - 11.20 K/uL [facility] RBC 4.68 4.50 - 5.50 M/uL [facility] HGB 15.6 13.0 - 17.0 g/dL [facility] HCT 43.7 40.0 - 51.0 % [facility] PLT 193 130 - 400 K/uL [facility] MCV 93.4 79.0 - 98.0 fL [facility] MCH 33.3 27.0 - 34.8 pg [facility] MCHC 35.7 31.5 - 36.0 g/dL [facility] RDW 12.1 10.8 - 14.6 % [facility] MPV 10.6 9.4 - 12.4 fl [facility] NRBC 0.00 /100 WBCs [facility] ABSOLUTE NRBC 0.00 K/uL [facility] DIFF METHOD Auto [facility] NEUTS 54.3 45.30 - 77.70 % [facility] LYMPHS 33.1 12.30 - 39.70 % [facility] MONOS 7.9 4.10 - 12.80 % [facility] EOS 3.8 0 - 7.2 % [facility] BASOS 0.9 0 - 2.80 % [facility] Granulocytes, immature (%) 0.0 0.0 - 0.9 % [facility] ABSOLUTE NEUTS 1.85 1.40 - 7.70 K/uL [facility] ABSOLUTE LYMPHS 1.13 0.60 - 3.20 K/uL [facility] ABSOLUTE MONOS 0.27 0.11 - 0.59 K/uL [facility] ABSOLUTE EOS 0.13 0.01 - 0.50 K/uL [facility] ABSOLUTE BASOS 0.03 0.00 - 0.08 K/uL [facility] Granulocytes, immature 0.00 0.00 - 0.05 K/uL [facility] Blood 05/21/2017 7:21 AM EST 05/21/2017 7:23 AM EST us Dustin Cooper MD LAB BLOOD ORDERABLES Final Result [facility] [address] [place] [address] documented in this encounter Visit Diagnoses Diagnosis 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 It is not the complete legal health record.[facility]
--- OUTSIDE RECORDS SUMMARY | 2024-12-23 18:35 | XMS_ITS | Clinical Summary ---
Author Organization [facility] Address [address] [place] [address] [place] [address] Phone Care Team Providers Care Oceanology Teacher Name Role Phone Kamran Watson MD Primary Care Provider Allergies No known active allergies Medications acetaminophen (TYLENOL) 500 MG tablet Take 500 mg by mouth every 6 (six) hours as needed for pain (specific location in comments). Active minocycline (MINOCIN) 100 MG capsule 06/04/2021 Active Active Problems Problem Noted Date Diagnosed Date Mass of subcutaneous tissue of back 02/23/2024 Family History Medical History Relation Comments Dementia Father Heart disease Mother Relation Status Comments Father Mother Social History Tobacco Use Types Packs/Day Years Used Date Smoking Tobacco: Former Cigarettes 2017 Smokeless Tobacco: Never Tobacco Cessation:Counseling Given: Not Answered Alcohol Use Standard Drinks/Week Comments Yes 7 (1 standard drink = 0.6 oz pur e alcohol) Education Answer Date Recorded Are you interested in more education? Not on baltazar e 07/26/2022 Are you concerned about learning? Not on file 07/26/2022 No 07/26/2022 No 07/26/2022 Digital Access Answer Date Recorded No 08/24/2022 No 08/24/2022 Reliable internet access at home? Not on file 08/24/2022 Device with a working camera? Not on file Sex and Gender Information Value Date Recorded Sex Assigned at Not on file Legal Sex Male 9:49 PM EDT Gender Identity Not on file Sexual Orientation Not on file Last Filed Vital Signs Vital Sign Reading Time Taken Comments Blood Pressure 133/89 02/23/2024 8:34 AM EST Pulse 50 02/23/2024 8:34 AM EST Temperature 36.3 C (97.3 F) 10/25/2020 9:55 AM EDT Respiratory Rate 16 10/25/2020 10:20 AM EDT Oxygen Saturation 98% 10/25/2020 10:20 AM EDT Inhaled Oxygen Concentration - - Weight 92.2 kg (203 lb 3.2 oz) 02/23/2024 8:34 A M EST Height 180.3 cm (5' 11 ) 08/23/2021 8:35 AM EDT Body Mass Index 28.34 08/23/2021 8:35 AM EDT Plan of Treatment Health Maintenance Due Date Last Done Comments Adult Td,Tdap Booster 1960 LIPID PANEL 1959 DEPRESSION SCREENING 1971 SMOKING Hx and SMOKELESS TOBACCO SCREENING 02/20/1972 HEPATITIS C SCREENING 1977 HIV ONE-TIME SCREENING (18-6 5 YEARS) 1977 SCREENING FOR DIABETES 1994 COLOGUARD 02/20/2004 FIT TEST 02/20/2004 FOBT 02/20/2004 SIGMOIDOSCOPY 02/20/2004 VIRTUAL COLONOSCOPY 02/20/2004 PNEUMOCOCCAL VACCINES (50+ years) (1 of 1 - PCV) 2009 ZOSTER VACCINES (1 of 2) 2009 ABDOMINAL AORTIC ANEURYSM (AAA) SCREENING 02/20/2024 INFLUENZA VACCINE (#1) 2024 , 02/21/2020, 02/18/2019 COVID-19 VACCINE (2 - 2024-2 6 season) 2024 06/21/2020 COLONOSCOPY 10/25/2030 10/25/2020 COLORECTAL CANCER SCREENING 10/25/2030 RSV VACCINE (1 - 1-dose 75+ series) 2034 HEPATITIS A VACCINES Aged Out No long er eligible based on patient's age to complete this topic HIB VACCINES Aged Out No longer eligi ble based on patient's age to complete this topic MENINGOCOCCAL VACCINES (ACWY) Aged Out No longer eligible based on patient's age to complete this topic MENINGOCOCCAL VACCINES (B) Aged Out N o longer eligible based on patient's age to complete this topic Medical Devices Not on file Procedures Procedure Name Priority Date/Time Associated Diagnosis Comments ENDOSCOPY, COLON 10/25/2020 9:34 AM EDT from Last 3 Months or Most Recently Relevant to Health Maintenance Results * ENDOSCOPY, COLON (10/25/2020 9:34 AM EDT) Narrative Transcriptions Earl Ro MD - 10/25/2020 9:34 AM EDT Patient Name: Hudson Ferrara Attending MD:: EARL RO MD, Procedure Date: 10/25/2020 9:34 AM Date of : 1960 Age: 60 Admit Type: Outpatient Gender: Male Room: [place] [address] Referring MD: KAMRAN WATSON MD Exam Type: Colonoscopy Indications: Screening for colorectal malignant neoplasm Medications: Monitored Anesthesia Care Procedure: Informed consent was obtained from the patient after discussion of the indications, limitations, alternatives, benefits, and risks of the procedure. Risks specifically discussed include but are not limited to medication reactions, missed lesions, bleeding, perforation, or the need for emergentsurgery. Throughout the procedure, the patient's bloodpressure, pulse, end-tidal CO2, and oxygen saturations were monitored continuously. The Olympus adult variable colonoscope CF-[id number] #2was introduced through the anus and advanced to thececum, identified by appendiceal orifice and ileocecalvalve. The colonoscopy was performed without difficulty.The patient tolerated the procedure well. The quality of the bowel preparation was good. The quality of the bowel preparation was evaluated using the BBPS(Warren Bowel Preparation Scale) with scores of: Right Colon= 3, Transverse Colon = 3 and Left Colon = 3 (entire mucosa seen well with no residual staining, small fragments of stool or opaque liquid). The total BBPS score equals 9. Complications: No immediate complications. Estimated blood loss: Minimal. Findings: The perianal and digital rectal examinations were normal. A 3 mm polyp was found in the transverse colon. The polyp was sessile. The polyp was removed with a cold snare. Resection and retrieval were complete. No other significant abnormalities were identifiedin a careful examination of the remainder of the colon. Impression: - One 3 mm polyp in the transverse colon, removedwith a cold snare. Resected and retrieved. Recommendation: - Discharge patient to home. - Await pathology results. EARL RO MD, 10/25/2020 9:55:29 AM This report has been signed electronically. Number of Addenda: 0 Note Initiated On: 10/25/2020 9:34 AM Procedure Code(s): --- Professional --- 74896, Colonoscopy, flexible; with removal of tumor(s), polyp(s), or other lesion(s) by snare technique --- Technical --- 69640, Colonoscopy, flexible; with removal of tumor(s), polyp(s), or other lesion(s) by snare technique Diagnosis Code(s): --- Professional --- Z12.11, Encounter for screening for malignantneoplasm of colon D12.3, Benign neoplasm of transverse colon (hepatic flexure or splenic flexure) --- Technical --- Z12.11, Encounter for screening for malignantneoplasm of colon D12.3, Benign neoplasm of transverse colon (hepatic flexure or splenic flexure) CPT copyright 2018 [employer]. All rights reserved. The codes documented in this report are preliminary and upon head setter reviewmay be revised to meet current compliance requirements. Procedure Date: 10/25/2020 9:34:[address] [place] [address] Kamran Watson MD GI PROCEDURE ORDERABLES Final Result from Last 3 Months or Most Recently Relevant to Health Maintenance Insurance MEDICARE PART A & B [facility] MEDICARE SUPPLEMENT MEDICARE PART A & B [facility] MEDICARE SUPPLEMENT MEDICARE PART A & B [employer] MEDICARE SUPPLEMENT MEDICARE PART A & B [facility] MEDICARE SUPPLEMENT MEDICARE PART A & B [facility] MEDICARE SUPPLEMENT MEDICARE PART A & B [employer] MEDICARE SUPPLEMENT Care Teams Oceanology Teacher Relationship Specialty Start Date End Date Kamran Watson MD [email or web address] PCP - General Family Medicine 05/21/17 Additional Source Comments The information contained in this document represents components of the legal health record. It is not the complete legal health record.[facility]
--- OUTSIDE RECORDS SUMMARY | 2024-12-23 18:35 | XMS_ITS | Encounter Summary ---
Author Organization [facility] Address [address] [place] [address] Phone Care Team Providers Care Mixer Runner Name Role Phone Kamran Kelly MD Primary Care Provider [phone] Encounter Details Date Type Department Care Team (Latest Contact Info) Description 05/25/2024 Transcribe Orders [facility] [address] [address] Camila Jones PA [address] [place] [address] Hereditary hemochromatosis (Primary Dx) Social History Tobacco Use Types Packs/Day Years Used Date Smoking Tobacco: Former Cigarettes 2017 Smokeless Tobacco: Never Alcohol Use Standard Drinks/Week [...] documented as of this encounter Results * Ferritin (05/25/2024 8:50 AM EST) FERRITIN 57 30 - 400 ug/L [facility] Blood 05/25/2024 8:50 AM EST 05/25/2024 8:53 AM EST us Camila [facility] BLOOD ORDERABLES Final Result [address] [address] * (ABNORMAL) Iron and iron binding capacity (05/25/2024 8:50 AM EST) IRON 256(H) 45 - 160 ug/dL [facility] IRON BINDING CAPACITY NOT CALCULATED 228 - 428 ug/dL [facility] TRANSFERRIN SATURAT. NOT CALCULATED 20 - 55 % [facility] Blood 05/25/2024 8:50 AM EST 05/25/2024 8:53 AM EST us Camila [facility] LAB BLOOD ORDERABLES Final Result Performing Organization Address City/[facility]/ZIP Co de Phone Number [address] [address] * Vitamin B12 (05/25/2024 8:50 AM EST) VITAMIN B12 357 232 - 1,245 pg/mL [facility] Blood 05/25/2024 8:50 AM EST 05/25/2024 8:53 AM EST [facility] BLOOD ORDERABLES Final Result Performing Organization Address City/[facility]/ZIP Co de Phone Number [address] [address] * (ABNORMAL) 25-OH vitamin D (05/25/2024 8:50 AM EST) 25 OH VIT D (TOTAL) 19(L) 30 - 60 ng/mL [facility] Blood 05/25/2024 8:50 AM EST 05/25/2024 8:53 AM EST us Camila [facility] BLOOD ORDERABLES Final Result [address] [address] * (ABNORMAL) CBC (05/25/2024 8:50 AM EST) WBC 3.67(L) 4.00 - 11.00 K/uL [facility] RBC 4.63 4.50 - 5.90 M/uL [facility] HGB 15.5 13.5 - 17.5 g/dL [facility] HCT 43.5 41.0 - 53.0 % [facility] PLT 179 150 - 450 K/uL [facility] MCV 94.0 80.0 - 100.0 fL [facility] MCH 33.5(H) 27.0 - 31.0 pg [facility] MCHC 35.6 32.0 - 36.0 g/dL [facility] RDW 12.2 11.5 - 14.5 % [facility] MPV 10.0 8.4 - 12.0 fL [facility] NRBC 0.00 0.00 /100 WBCs [facility] ABSOLUTE NRBC 0.00 0.00 K/uL [facility] Blood 05/25/2024 8:50 AM EST 05/25/2024 8:53 AM EST us Camila [facility] BLOOD ORDERABLES Final Result [address] [address] documented in this encounter Visit Diagnoses Diagnosis Hereditary hemochromatosis- Primary documented in this encounter Care Teams Mixer Runner Relationship Specialty Start Date End Date Kamran Kelly MD PCP - General Family Medicine 05/21/17 documented as of this encounter Additional Source Comments The information contained in this document represents components of the legal health record. It is not the complete legal health record.[facility]
--- OUTSIDE RECORDS SUMMARY | 2024-12-23 18:35 | XMS_ITS | Encounter Summary ---
Author Organization [facility] Address [address] [place] [address] Phone Care Team Providers Care Building Analyst/Supervisor Name Role Phone Kamran Kelly MD Primary Care Provider [phone] Encounter Details Date Type Department Care Team (Latest Contact Info) Description 11/26/2017 Transcribe Orders [facility] [address] [facility] [place] [address] Earl Staples MD 10 [facility] 2 [place] [address] [email or web address] Hereditary hemochromatosis (Primary Dx) Social History Tobacco [...] documented as of this encounter Results * Iron and iron binding capacity (11/26/2017 12:06 PM EDT) IRON 153 45 - 160 ug/dL [facility] IRON BINDING CAPACITY 286 228 - 428 ug/dL [facility] TRANSFERRIN SATURAT. 53 20 - 55 % [facility] Blood 11/26/2017 12:0 6 PM EDT 11/26/2017 12:10 PM EDT us Earl Staples MD LAB BLOOD ORDERABLES Final Resul t Performing Organization Address [facility] Co de Phone Number [address] [address] * Hemoglobin (11/26/2017 12:06 PM EDT) HGB 14.5 13.0 - 17.0 g/dL [facility] Blood 11/26/2017 12:0 6 PM EDT 11/26/2017 12:10 PM EDT us Earl Staples MD LAB BLOOD ORDERABLES Final Resul t Performing Organization Address [facility] Co de Phone Number [address] [address] * Hematocrit (11/26/2017 12:06 PM EDT) HCT 40.9 40.0 - 51.0 % [facility] Blood 11/26/2017 12:0 6 PM EDT 11/26/2017 12:10 PM EDT us Earl Staples MD LAB BLOOD ORDERABLES Final Resul t Performing Organization Address [facility] Co de Phone Number [address] [address] * (ABNORMAL) Ferritin (11/26/2017 12:06 PM EDT) FERRITIN 27(L) 30 - 400 ug/L [facility] Blood 11/26/2017 12:0 6 PM EDT 11/26/2017 12:10 PM EDT us Earl Staples MD LAB BLOOD ORDERABLES Final Resul t Performing Organization Address [facility] Co de Phone Number [address] [address] documented in this encounter Visit Diagnoses Diagnosis Hereditary hemochromatosis- Primary documented in this encounter Care Teams Building Analyst/Supervisor Relationship Specialty Start Date End Date Kamran Kelly MD [email or web address] PCP - General Family Medicine 05/21/17 documented as of this encounter Additional Source Comments The information contained in this document represents components of the legal health record. It is not the complete legal health record.[facility]
== END 2024-12-23 14:09 | disposition home or self-care (01) ==
LOC: HO.BBR 14:08
PROVIDERS: PCP Family Medicine; Visit Provider Internal Medicine Gastroenterology
DX: Z13.89 Encounter for screening for other disorder (principal)